=== PATIENT | female | born 1960 | race African-American/Black ===

== ENCOUNTER 2020-06-14 13:07 | Observation (INO) ==
[2020-06-14 14:18] LABS: Basophils % 0.5 % (0.0-0.8); Eosinophils # 0.1 10*3/uL (0.0-0.87); Eosinophils % 1.3 % (0.00-10.9); Hematocrit 25.9 VOL% (35.7-47.0); Hemoglobin 7.8 GM/DL (12.0-16.0); Immature Granulocytes % 0.3 %; Immature Granulocytes Absolute 0.01 #; Lymphocytes % 25.3 % (21.3-54.2); Mean Corpuscular HGB Conc 30.1 GM/DL (32-36); Mean Corpuscular Volume 100.4 FL (87-102); Mean Platelet Volume 10.3 FL (9.6-12.0); Monocytes % 12.5 % (1.7-12.7); Neutrophils % 60.1 % (38.7-73.9); Platelet Count 176 T/CUMM (130-400); Red Blood Count 2.58 MC/CUMM (3.8-5.5); Red Cell Distribution Width 16.9 % (9.3-17.3); White Blood Count 3.9 T/CUMM (4-12)
[2020-06-14 14:49] LABS: Alanine Aminotransferase < 9 U/L (13-56); Albumin 2.4 G/DL (3.4-5.0); Alkaline Phosphatase 48 U/L (45-117); Aspartate Amino Transferase 15 U/L (0-37); Blood Urea Nitrogen 10 MG/DL (7-18); Calcium 8.8 MG/DL (8.5-10.1); Estimated Glom Filtration Rate 12 ML/MIN; Glucose 87 MG/DL (74-106); Osmolality,Calculated 267.1 MOS/KG (273-304); Total Protein 5.8 G/DL (6.4-8.3)
[2020-06-14] MEDS ORDERED: GLUCAGON 1 MG VIAL IM PRN (15:30)
[2020-06-14] MEDS ORDERED: DEXTROSE 50% 25 GM/50 ML VIAL IV PRN (15:30)
[2020-06-14] MEDS ORDERED: NICOTINE 21 MG/24 HR PATCH TRANSDERM PRN (15:30)
[2020-06-14] MEDS ORDERED: ACETAMINOPHEN 325 MG TABLET PO PRN (15:30)
[2020-06-14] MEDS ORDERED: hydrALAZINE 20 MG/1 ML VIAL IV PRN (15:30)
[2020-06-14] MEDS ORDERED: LACTULOSE 20 GM/30 ML UDCUP PO PRN (15:30)
[2020-06-14] MEDS ORDERED: ZALEPLON 5 MG CAPSULE PO PRN (15:30)
[2020-06-14] MEDS ORDERED: MORPHINE 4 MG/1 ML VIAL IV PRN (15:30)
[2020-06-14] MEDS ORDERED: ONDANSETRON 4 MG/2 ML VIAL IV PRN (15:30)
[2020-06-14] MEDS ORDERED: traZODone 50 MG TABLET PO PRN (16:02)
[2020-06-14] MEDS: INSULIN REGULAR 100 UNIT/ML SUBCUT SCH ×2 (16:59→21:16)
[2020-06-14] MEDS ORDERED: ATORVASTATIN 40 MG TABLET PO SCH (21:00)
[2020-06-14] MEDS: cloNIDine 0.1 MG TABLET PO SCH (21:16)
[2020-06-14] MEDS: APIXABAN 5 MG TABLET PO SCH (21:20)
[2020-06-14] MEDS: carvediloL 12.5 MG TABLET PO SCH (21:20)
[2020-06-14] MEDS: ALBUTEROL/IPRATROPIUM 3 ML NEB RESP TX SCH (22:45)
[2020-06-15 04:07] LABS: Basophils % 0.5 % (0.0-0.8); Eosinophils # 0.1 10*3/uL (0.0-0.87); Eosinophils % 1.8 % (0.00-10.9); Hematocrit 25.1 VOL% (35.7-47.0); Hemoglobin 7.8 GM/DL (12.0-16.0); Immature Granulocytes % 0.3 %; Immature Granulocytes Absolute 0.01 #; Lymphocytes # 1.2 10*3/uL (1.4-4.0); Lymphocytes % 31.4 % (21.3-54.2); Mean Corpuscular HGB Conc 31.1 GM/DL (32-36); Mean Corpuscular Volume 98.8 FL (87-102); Mean Platelet Volume 10.9 FL (9.6-12.0); Monocytes % 14.9 % (1.7-12.7); Neutrophils % 51.1 % (38.7-73.9); Platelet Count 149 T/CUMM (130-400); Red Blood Count 2.54 MC/CUMM (3.8-5.5); Red Cell Distribution Width 16.9 % (9.3-17.3)
[2020-06-15] MEDS: ALBUTEROL/IPRATROPIUM 3 ML NEB RESP TX SCH ×2 (04:30→07:52)
[2020-06-15 04:45] LABS: Albumin 2.3 G/DL (3.4-5.0); Bilirubin,Total 0.4 MG/DL (0.2-1.0); Calcium 9.5 MG/DL (8.5-10.1); Osmolality,Calculated 262.5 MOS/KG (273-304); Risk Ratio 2.39; Thyroid Stimulating Hormone 2.54 uIU/ml (0.358-3.74); VLDL CHOLESTEROL 12.2 MG/DL
[2020-06-15] MEDS ORDERED: POTASSIUM CHLORIDE 20 MEQ TABLET PO ONE (07:36)
[2020-06-15 08:03] VITALS: BP 158/68
[2020-06-15] MEDS ORDERED: lisinopriL 10 MG TABLET PO SCH (09:00)
[2020-06-15] MEDS ORDERED: PANTOPRAZOLE 40 MG TABLET PO SCH (09:00)
[2020-06-15] MEDS ORDERED: ASPIRIN CHEW 81 MG TABLET PO SCH (09:00)
[2020-06-15] MEDS: INSULIN REGULAR 100 UNIT/ML SUBCUT SCH (10:34)
[2020-06-15] MEDS: APIXABAN 5 MG TABLET PO SCH (12:18)
[2020-06-15] MEDS: cloNIDine 0.1 MG TABLET PO SCH (12:18)
[2020-06-15] MEDS: carvediloL 12.5 MG TABLET PO SCH (12:18)
== END 2020-06-15 13:00 | disposition home or self-care (01) ==
LOC: N.ED 13:07 → N.EDINP 15:30 → INTOOBSV 15:30 → N.EDINP 15:48 → N.TELEN 16:27
PROVIDERS: ADMIT Internal Medicine; ATTEND Internal Medicine

== ENCOUNTER 2020-06-22 10:15 | Inpatient (IN) ==
[2020-06-22] MEDS ORDERED: MORPHINE 4 MG/1 ML VIAL ONE (11:42)
[2020-06-22] MEDS ORDERED: ASPIRIN CHEW 81 MG TABLET PO STA (11:42)
[2020-06-22] MEDS ORDERED: MORPHINE 4 MG/1 ML VIAL IV STA (11:42)
[2020-06-22] MEDS ORDERED: NITROGLYCERIN SL 0.4 MG TABLET SL STA (11:42)
[2020-06-22] MEDS ORDERED: ASPIRIN 325 MG TABLET ONE (11:43)
[2020-06-22] MEDS ORDERED: ASPIRIN CHEW 81 MG TABLET PO ONE (11:43)
[2020-06-22 11:44] LABS: Basophils % 0.3 % (0.0-0.8); Eosinophils % 0.3 % (0.00-10.9); Hgb & Hct Comparison OK; Immature Granulocytes % 0.5 %; Immature Granulocytes Absolute 0.03 #; Lymphocytes # 1.6 10*3/uL (1.4-4.0); Lymphocytes % 26.7 % (21.3-54.2); Mean Corpuscular HGB Conc 30.2 GM/DL (32-36); Mean Corpuscular Hemoglobin 31 PG (27-34); Mean Corpuscular Volume 101.8 FL (87-102); Monocytes # 0.5 10*3/uL (0.11-0.8); Monocytes % 8.4 % (1.7-12.7); Neutrophils # 3.9 10*3/uL (1.4-7.4); Neutrophils % 63.8 % (38.7-73.9); Platelet Count 151 T/CUMM (130-400)
[2020-06-22 11:50] LABS: Hematocrit 17.2 VOL% (35.7-47.0); Hemoglobin 5.2 GM/DL (12.0-16.0)
[2020-06-22 11:55] LABS: D-Dimer <= 0.5 MG/L FEU (<=0.5); INR 1.1; PT Patient Result 11.6 SECS (9.8-11.9); Partial Thromboplastin Time 26.6 SECS (23.9-33.8)
[2020-06-22 12:13] LABS: Alanine Aminotransferase < 6 U/L (13-56); Albumin/Globulin Ratio 0.6 RATIO (1.1-2.2); Alkaline Phosphatase 41 U/L (45-117); Aspartate Amino Transferase 12 U/L (0-37); Blood Urea Nitrogen 47 MG/DL (7-18); Carbon Dioxide 30 MMOL/L (21-32); Chloride 92 MMOL/L (98-107); Estimated Glom Filtration Rate 10 ML/MIN; Globulin 3.7 G/DL (2.3-3.5); Osmolality,Calculated 268.1 MOS/KG (273-304); Sodium 128 MMOL/L (136-145)
[2020-06-22 12:22] LABS: Barbiturates Screen,Urine Negative (Negative); Cannabinoid Screen,Urine Negative (Negative); Phencyclidine Screen,Urine Negative (Negative)
[2020-06-22 12:23] LABS: Was Specimen Discarded? Yes
[2020-06-22 12:29] LABS: Apearance,Urine Clear (Clear); Bilirubin,Urine Negative (Negative); Blood, Urine Negative (Negative); Glucose,Urine (UA) Negative (Negative); Ketones,Urine Negative (Negative); Nitrite,Urine Negative (Negative); Protein,Urine 1+ MG/DL; RBC,Urine Rare /HPF (0-4); Squamous Epithelial Cell,Urine Moderate /HPF (0-10); Urine Color Straw (Yellow); Urine Specific Gravity 1.005 (1.001-1.035); Urine Urobilinogen < 2.0 EU/DL (0.2-1.0); WBC,Urine TNTC /HPF (0-6)
[2020-06-22 12:30] LABS: Bacteria,Urine Few /HPF (Few)
[2020-06-22] MEDS ORDERED: SODIUM CHLORIDE 0.9% 1,000 ML IV PRN (14:01)
[2020-06-22] MEDS ORDERED: NICOTINE 21 MG/24 HR PATCH TRANSDERM PRN (14:37)
[2020-06-22] MEDS ORDERED: GLUCAGON 1 MG VIAL IM PRN (14:37)
[2020-06-22] MEDS ORDERED: ONDANSETRON 4 MG/2 ML VIAL IV PRN (14:37)
[2020-06-22] MEDS ORDERED: guaiFENesin/DM ER 600-30 MG TABLET PO PRN (14:37)
[2020-06-22] MEDS ORDERED: ALUMINUM/MAGNES/SIMETH MAX STR 30 ML UDCUP PO PRN (14:37)
[2020-06-22] MEDS ORDERED: DEXTROSE 50% 25 GM/50 ML VIAL IV PRN (14:37)
[2020-06-22] MEDS ORDERED: ACETAMINOPHEN 325 MG TABLET PO PRN (14:37)
[2020-06-22] MEDS ORDERED: hydrALAZINE 20 MG/1 ML VIAL IV PRN (14:37)
[2020-06-22] MEDS ORDERED: PROMETHAZINE 25 MG/1 ML VIAL IM PRN (14:37)
[2020-06-22] MEDS ORDERED: diphenhydrAMINE CAP 25 MG CAPSULE PO PRN (14:37)
[2020-06-22 15:12] LABS: Folate 3.6 NG/ML (5.4-24.0)
[2020-06-22] MEDS: INSULIN LISPRO 100 UNIT/ML SUBCUT SCH ×2 (16:52→22:11)
[2020-06-22] MEDS: SODIUM CHLORIDE 0.9% 1,000 ML IV SCH ×2 (16:52→22:11)
[2020-06-22] MEDS: carvediloL 12.5 MG TABLET PO SCH (16:52)
[2020-06-22] MEDS: ALBUTEROL 2.5 MG/3 ML NEB RESP TX SCH (19:14)
[2020-06-22] MEDS: PANTOPRAZOLE INJ 200 MG in SODIUM CHLORIDE 0.9% 250 ML IV SCH (20:21)
[2020-06-22] MEDS: DOCUSATE SODIUM 100 MG CAPSULE PO SCH (22:11)
[2020-06-22] MEDS: traZODone 50 MG TABLET PO PRN (22:11)
[2020-06-22] MEDS: ATORVASTATIN 40 MG TABLET PO SCH (22:11)
[2020-06-23] MEDS: ALBUTEROL 2.5 MG/3 ML NEB RESP TX SCH ×4 (00:18→19:41)
[2020-06-23 07:13] LABS: Anion Gap 10.8 MMOL/L (5.0-15.0); Magnesium 1.8 MG/DL (1.8-2.4); Osmolality,Calculated 268.8 MOS/KG (273-304); Potassium 3.8 MMOL/L (3.5-5.1)
[2020-06-23 07:52] LABS: Basophils % 0.5 % (0.0-0.8); Eosinophils % 0.5 % (0.00-10.9); Hematocrit 19.2 VOL% (35.7-47.0); Hgb & Hct Comparison OK; Immature Granulocytes % 0.6 %; Immature Granulocytes Absolute 0.05 #; Immature Platelet Fraction 4.2 % (0.0-7.0); Lymphocytes # 2.1 10*3/uL (1.4-4.0); Lymphocytes % 24.2 % (21.3-54.2); Mean Corpuscular HGB Conc 32.8 GM/DL (32-36); Mean Corpuscular Hemoglobin 30 PG (27-34); Mean Corpuscular Volume 91.9 FL (87-102); Monocytes % 11.3 % (1.7-12.7); Neutrophils # 5.4 10*3/uL (1.4-7.4); Neutrophils % 62.9 % (38.7-73.9)
[2020-06-23 07:57] LABS: Hemoglobin 6.3 GM/DL (12.0-16.0); Platelet Count 114 T/CUMM (130-400)
[2020-06-23] MEDS ORDERED: SODIUM CHLORIDE 0.9% 1,000 ML IV PRN (08:10)
[2020-06-23 08:14] LABS: Basophils % 0.3 % (0.0-0.8); Eosinophils % 0.3 % (0.00-10.9); Hgb & Hct Comparison OK; Immature Granulocytes % 0.5 %; Immature Granulocytes Absolute 0.03 #; Lymphocytes # 1.6 10*3/uL (1.4-4.0); Lymphocytes % 26.7 % (21.3-54.2); Mean Corpuscular HGB Conc 30.2 GM/DL (32-36); Mean Corpuscular Hemoglobin 31 PG (27-34); Mean Corpuscular Volume 101.8 FL (87-102); Monocytes # 0.5 10*3/uL (0.11-0.8); Monocytes % 8.4 % (1.7-12.7); Neutrophils # 3.9 10*3/uL (1.4-7.4); Neutrophils % 63.8 % (38.7-73.9); Platelet Count 151 T/CUMM (130-400)
[2020-06-23 08:15] LABS: Hematocrit 17.2 VOL% (35.7-47.0); Hemoglobin 5.2 GM/DL (12.0-16.0)
[2020-06-23 08:24] LABS: Immature Retic Fraction 25.1 % (3.0-15.9); Reticulocyte % 9.2 % (0.5-1.5)
[2020-06-23 08:43] LABS: Hemoglobin A1 (Alkaline) 97.4 % (96.5-98.5); Hemoglobin A2 (Alkaline) 2.6 % (1.5-3.5)
[2020-06-23 09:27] LABS: Sedimentation Rate-Westergren 23 MM/HR (0-30)
[2020-06-23] MEDS: lisinopriL 10 MG TABLET PO SCH (09:47)
[2020-06-23] MEDS: INSULIN LISPRO 100 UNIT/ML SUBCUT SCH ×4 (09:47→22:05)
[2020-06-23] MEDS: carvediloL 12.5 MG TABLET PO SCH ×2 (09:47→18:05)
[2020-06-23] MEDS: DOCUSATE SODIUM 100 MG CAPSULE PO SCH ×2 (09:48→22:05)
[2020-06-23] MEDS: SODIUM CHLORIDE 0.9% 1,000 ML IV SCH (10:31)
[2020-06-23 15:40] LABS: Hematocrit 21.9 VOL% (35.7-47.0); Hgb & Hct Comparison OK
[2020-06-23 15:43] LABS: Hemoglobin 7.1 GM/DL (12.0-16.0)
[2020-06-23 19:37] LABS: Hematocrit 20.4 VOL% (35.7-47.0); Hemoglobin 6.7 GM/DL (12.0-16.0); Hgb & Hct Comparison OK
[2020-06-23] MEDS: ATORVASTATIN 40 MG TABLET PO SCH (22:04)
[2020-06-23] MEDS: traZODone 50 MG TABLET PO PRN (22:04)
[2020-06-24] MEDS: ALBUTEROL 2.5 MG/3 ML NEB RESP TX SCH ×4 (00:18→19:04)
[2020-06-24] MEDS: PANTOPRAZOLE INJ 200 MG in SODIUM CHLORIDE 0.9% 250 ML IV SCH ×2 (01:06→14:59)
[2020-06-24 07:27] LABS: Basophils % 0.3 % (0.0-0.8); Eosinophils # 0.1 10*3/uL (0.0-0.87); Eosinophils % 0.8 % (0.00-10.9); Hematocrit 23.3 VOL% (35.7-47.0); Hemoglobin 7.9 GM/DL (12.0-16.0); Hgb & Hct Comparison OK; Immature Granulocytes % 0.4 %; Immature Granulocytes Absolute 0.03 #; Immature Platelet Fraction 3.6 % (0.0-7.0); Lymphocytes # 1.7 10*3/uL (1.4-4.0); Lymphocytes % 22.9 % (21.3-54.2); Mean Corpuscular HGB Conc 33.9 GM/DL (32-36); Mean Corpuscular Hemoglobin 30 PG (27-34); Mean Corpuscular Volume 89.3 FL (87-102); Monocytes # 0.9 10*3/uL (0.11-0.8); Monocytes % 12.3 % (1.7-12.7); Neutrophils # 4.7 10*3/uL (1.4-7.4); Neutrophils % 63.3 % (38.7-73.9); Platelet Count 106 T/CUMM (130-400)
[2020-06-24] MEDS: INSULIN LISPRO 100 UNIT/ML SUBCUT SCH ×4 (08:16→20:55)
[2020-06-24] MEDS: carvediloL 12.5 MG TABLET PO SCH ×2 (12:36→16:38)
[2020-06-24] MEDS: DOCUSATE SODIUM 100 MG CAPSULE PO SCH ×2 (12:37→20:55)
[2020-06-24] MEDS: MENTHOL/ZINC OXIDE OINT 71 GM JAR TOP SCH ×3 (12:37→20:55)
[2020-06-24] MEDS: lisinopriL 10 MG TABLET PO SCH (12:37)
[2020-06-24] MEDS: FOLIC ACID 1 MG TABLET PO SCH (12:37)
[2020-06-24 13:39] LABS: Hematocrit 23.6 VOL% (35.7-47.0); Hemoglobin 7.9 GM/DL (12.0-16.0); Hgb & Hct Comparison OK
[2020-06-24] MEDS: traZODone 50 MG TABLET PO PRN (20:54)
[2020-06-24] MEDS: ATORVASTATIN 40 MG TABLET PO SCH (20:54)
[2020-06-25] MEDS: ALBUTEROL 2.5 MG/3 ML NEB RESP TX SCH ×4 (00:26→19:17)
[2020-06-25] MEDS: INSULIN LISPRO 100 UNIT/ML SUBCUT SCH ×4 (07:59→21:22)
[2020-06-25] MEDS: DOCUSATE SODIUM 100 MG CAPSULE PO SCH ×2 (09:42→21:22)
[2020-06-25] MEDS: carvediloL 12.5 MG TABLET PO SCH ×2 (09:42→17:54)
[2020-06-25] MEDS: FOLIC ACID 1 MG TABLET PO SCH (09:42)
[2020-06-25] MEDS: lisinopriL 10 MG TABLET PO SCH (09:45)
[2020-06-25] MEDS: MENTHOL/ZINC OXIDE OINT 71 GM JAR TOP SCH ×4 (11:15→21:21)
[2020-06-25] MEDS ORDERED: cloNIDine 0.1 MG TABLET PO SCH (12:30)
[2020-06-25 12:53] LABS: % Iron Saturation 18.4 % (18-50)
[2020-06-25] MEDS: PANTOPRAZOLE INJ 200 MG in SODIUM CHLORIDE 0.9% 250 ML IV SCH (16:32)
[2020-06-25] MEDS ORDERED: APIXABAN 5 MG TABLET PO SCH (21:00)
[2020-06-25] MEDS: ATORVASTATIN 40 MG TABLET PO SCH (21:21)
[2020-06-25] MEDS: cloNIDine 0.1 MG TABLET PO SCH (21:21)
[2020-06-25] MEDS: traZODone 50 MG TABLET PO PRN (21:21)
[2020-06-26] MEDS: ALBUTEROL 2.5 MG/3 ML NEB RESP TX SCH ×4 (01:50→20:10)
[2020-06-26 05:17] LABS: Basophils % 0.3 % (0.0-0.8); Eosinophils # 0.1 10*3/uL (0.0-0.87); Eosinophils % 1.1 % (0.00-10.9); Hematocrit 21.4 VOL% (35.7-47.0); Hgb & Hct Comparison OK; Immature Granulocytes % 0.5 %; Immature Granulocytes Absolute 0.04 #; Immature Platelet Fraction 3.1 % (0.0-7.0); Lymphocytes # 1.5 10*3/uL (1.4-4.0); Lymphocytes % 16.8 % (21.3-54.2); Mean Corpuscular HGB Conc 32.7 GM/DL (32-36); Mean Corpuscular Hemoglobin 30 PG (27-34); Monocytes # 0.9 10*3/uL (0.11-0.8); Monocytes % 9.6 % (1.7-12.7); Neutrophils # 6.4 10*3/uL (1.4-7.4); Neutrophils % 71.7 % (38.7-73.9); Platelet Count 108 T/CUMM (130-400)
[2020-06-26 05:37] LABS: Anion Gap 10.1 MMOL/L (5.0-15.0); Osmolality,Calculated 275.4 MOS/KG (273-304); Potassium 4.1 MMOL/L (3.5-5.1)
[2020-06-26 06:50] LABS: Platelet Estimate Adequate
[2020-06-26 06:51] LABS: Basophilic Stippling Slight
[2020-06-26] MEDS: INSULIN LISPRO 100 UNIT/ML SUBCUT SCH ×4 (07:28→20:55)
[2020-06-26] MEDS ORDERED: ASPIRIN CHEW 81 MG TABLET PO SCH (09:00)
[2020-06-26] MEDS: FOLIC ACID 1 MG TABLET PO SCH (09:13)
[2020-06-26] MEDS: DOCUSATE SODIUM 100 MG CAPSULE PO SCH ×2 (09:13→20:55)
[2020-06-26] MEDS: carvediloL 12.5 MG TABLET PO SCH ×2 (09:13→16:49)
[2020-06-26] MEDS: cloNIDine 0.1 MG TABLET PO SCH (09:13)
[2020-06-26] MEDS: lisinopriL 10 MG TABLET PO SCH (09:13)
[2020-06-26] MEDS: MENTHOL/ZINC OXIDE OINT 71 GM JAR TOP SCH ×4 (09:13→20:55)
[2020-06-26] MEDS ORDERED: SODIUM CHLORIDE 0.9% 1,000 ML IV PRN (13:21)
[2020-06-26] MEDS: FERROUS SULFATE 325 MG TABLET PO SCH (14:06)
[2020-06-26] MEDS: PANTOPRAZOLE INJ 200 MG in SODIUM CHLORIDE 0.9% 250 ML IV SCH (16:49)
[2020-06-26] MEDS: ATORVASTATIN 40 MG TABLET PO SCH (20:55)
[2020-06-26] MEDS: traZODone 50 MG TABLET PO PRN (20:56)
[2020-06-27] MEDS: ALBUTEROL 2.5 MG/3 ML NEB RESP TX SCH ×4 (00:40→20:10)
[2020-06-27 06:31] LABS: Basophils % 0.2 % (0.0-0.8); Eosinophils # 0.1 10*3/uL (0.0-0.87); Hematocrit 20.8 VOL% (35.7-47.0); Hemoglobin 6.8 GM/DL (12.0-16.0); Hgb & Hct Comparison OK; Immature Granulocytes % 0.2 %; Immature Granulocytes Absolute 0.02 #; Immature Platelet Fraction 2.5 % (0.0-7.0); Lymphocytes # 1.1 10*3/uL (1.4-4.0); Lymphocytes % 13.6 % (21.3-54.2); Mean Corpuscular HGB Conc 32.7 GM/DL (32-36); Mean Corpuscular Hemoglobin 31 PG (27-34); Mean Corpuscular Volume 93.7 FL (87-102); Monocytes # 0.7 10*3/uL (0.11-0.8); Monocytes % 8.4 % (1.7-12.7); Neutrophils # 6.2 10*3/uL (1.4-7.4); Neutrophils % 76.6 % (38.7-73.9); Platelet Count 121 T/CUMM (130-400)
[2020-06-27 06:57] LABS: Hypochromasia 2+; Platelet Estimate Normal
[2020-06-27] MEDS ORDERED: SODIUM CHLORIDE 0.9% 500 ML IV SCH (07:00)
[2020-06-27 07:05] LABS: Osmolality,Calculated 273.8 MOS/KG (273-304)
[2020-06-27] MEDS: INSULIN LISPRO 100 UNIT/ML SUBCUT SCH ×4 (08:49→20:28)
[2020-06-27] MEDS ORDERED: propofoL 200 MG/20 ML VIAL IV ONE (09:00)
[2020-06-27] MEDS ORDERED: LIDOCAINE 2% 5 ML VIAL ONE (09:00)
[2020-06-27] MEDS: carvediloL 12.5 MG TABLET PO SCH ×2 (10:22→17:05)
[2020-06-27] MEDS: FOLIC ACID 1 MG TABLET PO SCH (10:23)
[2020-06-27] MEDS: DOCUSATE SODIUM 100 MG CAPSULE PO SCH ×2 (10:23→20:28)
[2020-06-27] MEDS: lisinopriL 10 MG TABLET PO SCH (10:23)
[2020-06-27] MEDS: MENTHOL/ZINC OXIDE OINT 71 GM JAR TOP SCH ×4 (10:23→20:28)
[2020-06-27] MEDS: FERROUS SULFATE 325 MG TABLET PO SCH (10:23)
[2020-06-27] MEDS: ATORVASTATIN 40 MG TABLET PO SCH (20:28)
[2020-06-27] MEDS: traZODone 50 MG TABLET PO PRN (20:28)
[2020-06-27] MEDS: PANTOPRAZOLE 40 MG VIAL IV SCH (20:28)
[2020-06-28] MEDS: ALBUTEROL 2.5 MG/3 ML NEB RESP TX SCH ×2 (00:23→07:20)
[2020-06-28 04:28] LABS: Basophils # 0.1 10*3/uL (0.0-0.2); Basophils % 0.5 % (0.0-0.8); Eosinophils # 0.1 10*3/uL (0.0-0.87); Eosinophils % 0.9 % (0.00-10.9); Hematocrit 23.3 VOL% (35.7-47.0); Hemoglobin 7.5 GM/DL (12.0-16.0); Hgb & Hct Comparison OK; Immature Granulocytes % 0.4 %; Immature Granulocytes Absolute 0.04 #; Lymphocytes # 1.5 10*3/uL (1.4-4.0); Lymphocytes % 16.4 % (21.3-54.2); Mean Corpuscular HGB Conc 32.2 GM/DL (32-36); Mean Corpuscular Hemoglobin 31 PG (27-34); Mean Corpuscular Volume 94.7 FL (87-102); Monocytes # 0.8 10*3/uL (0.11-0.8); Monocytes % 8.9 % (1.7-12.7); Neutrophils # 6.6 10*3/uL (1.4-7.4); Neutrophils % 72.9 % (38.7-73.9); Platelet Count 111 T/CUMM (130-400)
[2020-06-28 05:05] LABS: Anion Gap 7.8 MMOL/L (5.0-15.0); Magnesium 1.6 MG/DL (1.8-2.4); Osmolality,Calculated 270.7 MOS/KG (273-304); Potassium 3.8 MMOL/L (3.5-5.1)
[2020-06-28 05:10] LABS: Hypochromasia 2+; Platelet Estimate Decreased
[2020-06-28] MEDS ORDERED: MAGNESIUM SULF RIDER 2 GM in PREMIX 1 EACH IV ONE (06:50)
[2020-06-28 07:55] VITALS: BP 140/63
[2020-06-28] MEDS: INSULIN LISPRO 100 UNIT/ML SUBCUT SCH (07:56)
[2020-06-28] MEDS: carvediloL 12.5 MG TABLET PO SCH (09:10)
[2020-06-28] MEDS: FERROUS SULFATE 325 MG TABLET PO SCH (09:10)
[2020-06-28] MEDS: FOLIC ACID 1 MG TABLET PO SCH (09:10)
[2020-06-28] MEDS: DOCUSATE SODIUM 100 MG CAPSULE PO SCH (09:10)
[2020-06-28] MEDS: PANTOPRAZOLE 40 MG VIAL IV SCH (09:11)
[2020-06-28] MEDS: lisinopriL 10 MG TABLET PO SCH (09:11)
[2020-06-28] MEDS: MENTHOL/ZINC OXIDE OINT 71 GM JAR TOP SCH (09:15)
== END 2020-06-28 10:06 | disposition home health service (06) ==
LOC: EDUNIT# → EDBD → N.ED 10:15 → SUATTDRO 14:26 → N.EDINP 14:26 → N.TELES 15:04
PROVIDERS: ADMIT Internal Medicine; ATTEND Internal Medicine

== ENCOUNTER 2020-07-12 05:19 | Inpatient (IN) ==
[2020-07-12] MEDS ORDERED: VECURONIUM 10 MG VIAL IV ONE (05:44)
[2020-07-12] MEDS ORDERED: ETOMIDATE 20 MG/10 ML VIAL IV ONE (05:44)
[2020-07-12] MEDS ORDERED: NITROGLYCERIN 2% OINT 1 INCH/GM PACK TOP STA (05:45)
[2020-07-12] MEDS ORDERED: methylPREDNISolone SOD SUC 125 MG/2 ML VIAL IV STA (05:45)
[2020-07-12] MEDS ORDERED: ONDANSETRON 4 MG/2 ML VIAL IV STA (05:45)
[2020-07-12] MEDS ORDERED: FUROSEMIDE 100 MG/10 ML VIAL IV STA (05:45)
[2020-07-12 06:01] LABS: Basophils % 0.4 % (0.0-0.8); Eosinophils # 0.1 10*3/uL (0.0-0.87); Eosinophils % 0.7 % (0.00-10.9); Immature Granulocytes % 0.5 %; Immature Granulocytes Absolute 0.05 #; Lymphocytes # 1.5 10*3/uL (1.4-4.0); Lymphocytes % 15.7 % (21.3-54.2); Mean Corpuscular HGB Conc 30.5 GM/DL (32-36); Mean Corpuscular Volume 99.5 FL (87-102); Mean Platelet Volume 10.5 FL (9.6-12.0); Monocytes % 3.9 % (1.7-12.7); Neutrophils % 78.8 % (38.7-73.9); Platelet Count 196 T/CUMM (130-400); Red Blood Count 2.11 MC/CUMM (3.8-5.5); Red Cell Distribution Width 15.3 % (9.3-17.3); White Blood Count 9.7 T/CUMM (4-12)
[2020-07-12 06:06] LABS: Hemoglobin 6.4 GM/DL (12.0-16.0)
[2020-07-12] MEDS ORDERED: ETOMIDATE 20 MG/10 ML VIAL IV STA (06:08)
[2020-07-12] MEDS ORDERED: VECURONIUM 10 MG VIAL IV STA (06:09)
[2020-07-12 06:21] LABS: ABG Base Excess 2.2 MMOL/L (-2.5-2.5); ABG HCO3 26.1 MMOL/L (20-26); ABG Oxygen Saturation 73.7 % (95-100); ABG PH 7.328 (7.35-7.45); ABG PO2 46.1 MM HG (80-95); ABG TCO2 27.3 MMOL/L (23-27)
[2020-07-12 06:21] LABS: PT Patient Result 10.6 SECS (9.8-11.9)
[2020-07-12 06:22] LABS: Apearance,Urine CLEAR (Clear); Bacteria,Urine Few /HPF (Few); Bilirubin,Urine Negative (Negative); Blood, Urine Negative (Negative); Glucose,Urine (UA) Negative (Negative); Ketones,Urine Negative (Negative); Nitrite,Urine Negative (Negative); Protein,Urine 100 MG/DL; RBC,Urine 3 /HPF (0-4); Squamous Epithelial Cell,Urine Occasional /HPF (0-10); Urine Color Straw (Yellow); Urine Specific Gravity 1.004 (1.001-1.035); Urine Urobilinogen < 2.0 EU/DL (0.2-1.0); WBC,Urine 146 /HPF (0-6)
[2020-07-12 06:23] LABS: Alanine Aminotransferase 14 U/L (13-56); Albumin 2.4 G/DL (3.4-5.0); Alkaline Phosphatase 61 U/L (45-117); Aspartate Amino Transferase 24 U/L (0-37); Bilirubin,Total < 0.39 MG/DL (0.2-1.0); Blood Urea Nitrogen 23 MG/DL (7-18); Calcium 9.4 MG/DL (8.5-10.1); Estimated Glom Filtration Rate 9 ML/MIN; Glucose 171 MG/DL (74-106); Osmolality,Calculated 280.8 MOS/KG (273-304); Total Protein 7.3 G/DL (6.4-8.3)
[2020-07-12 06:25] LABS: Barbiturates Screen,Urine Negative (Negative); Benzodiazepines Screen,Urine Negative (Negative); Cannabinoid Screen,Urine Negative (Negative); Opiate Screen,Urine Negative (Negative); Phencyclidine Screen,Urine Negative (Negative)
[2020-07-12] MEDS ORDERED: hydrALAZINE 20 MG/1 ML VIAL IV STA (06:34)
[2020-07-12 06:57] LABS: ABG Base Excess 4.7 MMOL/L (-2.5-2.5); ABG HCO3 28.7 MMOL/L (20-26); ABG Oxygen Saturation 99.6 % (95-100); ABG PCO2 47.2 MM HG (35-48)
[2020-07-12 06:58] LABS: % Iron Saturation 38.3 % (18-50)
[2020-07-12] MEDS ORDERED: VANCOMYCIN INJ 1,000 MG in SODIUM CHLORIDE 0.9% 250 ML IV STA (07:40)
[2020-07-12] MEDS ORDERED: MEROPENEM 500 MG in SODIUM CHLORIDE 0.9% 100 ML IV ONE (07:41)
[2020-07-12] MEDS ORDERED: ALBUTEROL 2.5 MG/3 ML NEB RESP TX PRN (07:43)
[2020-07-12] MEDS ORDERED: ONDANSETRON 4 MG/2 ML VIAL IV PRN (07:43)
[2020-07-12] MEDS ORDERED: SODIUM CHLORIDE 0.9% 100 ML IV ONE (08:17)
[2020-07-12] MEDS ORDERED: MEROPENEM 500 MG VIAL ONE (08:17)
[2020-07-12] MEDS ORDERED: SODIUM CHLORIDE 0.9% 1,000 ML IV PRN (08:53)
[2020-07-12] MEDS: PANTOPRAZOLE 40 MG VIAL IV SCH (09:04)
[2020-07-12] MEDS: ENOXAPARIN 30 MG/0.3 ML SYRINGE SUBCUT SCH (09:08)
[2020-07-12] MEDS: carvediloL 12.5 MG TABLET PER TUBE SCH ×2 (12:33→21:13)
[2020-07-12] MEDS: INSULIN LISPRO 100 UNIT/ML SUBCUT SCH (18:23)
[2020-07-13] MEDS: INSULIN LISPRO 100 UNIT/ML SUBCUT SCH ×5 (00:18→23:15)
[2020-07-13 03:35] LABS: ABG Base Excess 5.2 MMOL/L (-2.5-2.5); ABG HCO3 29.2 MMOL/L (20-26); ABG Oxygen Saturation 98.5 % (95-100); ABG PCO2 36.3 MM HG (35-48); ABG PH 7.504 (7.35-7.45); ABG TCO2 26.4 MMOL/L (23-27); Allen Test Positive; Pt O2 Delivery Device Ventilator
[2020-07-13 04:18] LABS: Basophils % 0.2 % (0.0-0.8); Eosinophils % 0.1 % (0.00-10.9); Hematocrit 25.9 VOL% (35.7-47.0); Hemoglobin 8.3 GM/DL (12.0-16.0); Immature Granulocytes % 0.5 %; Immature Granulocytes Absolute 0.06 #; Lymphocytes % 8.8 % (21.3-54.2); Mean Corpuscular Volume 95.6 FL (87-102); Mean Platelet Volume 10.7 FL (9.6-12.0); Monocytes % 8.6 % (1.7-12.7); NRBC # 0.02 10*3/uL; Neutrophils % 81.8 % (38.7-73.9); Platelet Count 173 T/CUMM (130-400); Red Blood Count 2.71 MC/CUMM (3.8-5.5); Red Cell Distribution Width 15.5 % (9.3-17.3); White Blood Count 11.8 T/CUMM (4-12)
[2020-07-13 04:57] LABS: Calcium 8.8 MG/DL (8.5-10.1); Osmolality,Calculated 275.7 MOS/KG (273-304)
[2020-07-13 04:58] LABS: Troponin I 3.28 NG/ML (0.00-0.045)
[2020-07-13] MEDS ORDERED: GLUCAGON 1 MG VIAL IM PRN (07:53)
[2020-07-13] MEDS ORDERED: DEXTROSE 10% 250 ML BAG IV PRN (07:53)
[2020-07-13] MEDS: carvediloL 12.5 MG TABLET PER TUBE SCH ×2 (10:00→22:52)
[2020-07-13] MEDS: MEROPENEM 500 MG in SODIUM CHLORIDE 0.9% 100 ML IV SCH (10:00)
[2020-07-13] MEDS: ENOXAPARIN 30 MG/0.3 ML SYRINGE SUBCUT SCH (10:00)
[2020-07-13] MEDS: PANTOPRAZOLE 40 MG VIAL IV SCH (10:00)
[2020-07-13] MEDS: lisinopriL 10 MG TABLET PO SCH (11:36)
[2020-07-13] MEDS ORDERED: DOPamine 800 MG/250 ML PREMIX IV PRN (19:19)
[2020-07-14 03:58] LABS: Basophils % 0.2 % (0.0-0.8); Eosinophils % 0.3 % (0.00-10.9); Hematocrit 25.3 VOL% (35.7-47.0); Hemoglobin 8.4 GM/DL (12.0-16.0); Immature Granulocytes % 0.5 %; Immature Granulocytes Absolute 0.05 #; Lymphocytes # 0.9 10*3/uL (1.4-4.0); Lymphocytes % 8.9 % (21.3-54.2); Mean Corpuscular HGB Conc 33.2 GM/DL (32-36); Mean Corpuscular Volume 94.4 FL (87-102); Mean Platelet Volume 10.6 FL (9.6-12.0); Neutrophils % 80.1 % (38.7-73.9); Platelet Count 181 T/CUMM (130-400); Red Blood Count 2.68 MC/CUMM (3.8-5.5); White Blood Count 10.3 T/CUMM (4-12)
[2020-07-14 04:17] LABS: Calcium 8.9 MG/DL (8.5-10.1); Osmolality,Calculated 277.8 MOS/KG (273-304)
[2020-07-14 04:58] LABS: ABG Base Excess 3.2 MMOL/L (-2.5-2.5); ABG HCO3 26.4 MMOL/L (20-26); ABG Oxygen Saturation 99.1 % (95-100); ABG PCO2 33.9 MM HG (35-48); ABG PH 7.509 (7.35-7.45); ABG PO2 189.3 MM HG (80-95); ABG TCO2 27.4 MMOL/L (23-27); Allen Test Positive; Pt O2 Delivery Device Ventilator
[2020-07-14 05:30] LABS: Barbiturates Screen,Urine Negative (Negative); Benzodiazepines Screen,Urine Negative (Negative); Cannabinoid Screen,Urine Negative (Negative); Opiate Screen,Urine Negative (Negative); Phencyclidine Screen,Urine Negative (Negative)
[2020-07-14] MEDS: INSULIN LISPRO 100 UNIT/ML SUBCUT SCH ×4 (05:39→20:51)
[2020-07-14] MEDS ORDERED: VANCOMYCIN INJ 750 MG in SODIUM CHLORIDE 0.9% 250 ML IV PRN (08:15)
[2020-07-14] MEDS: ENOXAPARIN 30 MG/0.3 ML SYRINGE SUBCUT SCH (08:47)
[2020-07-14] MEDS: carvediloL 12.5 MG TABLET PER TUBE SCH ×2 (08:47→20:51)
[2020-07-14] MEDS: lisinopriL 10 MG TABLET PO SCH (08:47)
[2020-07-14] MEDS: MEROPENEM 500 MG in SODIUM CHLORIDE 0.9% 100 ML IV SCH (08:47)
[2020-07-14] MEDS: PANTOPRAZOLE 40 MG VIAL IV SCH (08:47)
[2020-07-14] MEDS ORDERED: VANCOMYCIN INJ 1,250 MG in SODIUM CHLORIDE 0.9% 250 ML IV ONE (09:00)
[2020-07-14] MEDS ORDERED: ALBUMIN 5% 12.5 GM/250 ML VIAL IV ONE (10:59)
[2020-07-15 05:36] LABS: Basophils % 0.2 % (0.0-0.8); Eosinophils # 0.1 10*3/uL (0.0-0.87); Eosinophils % 1.1 % (0.00-10.9); Hematocrit 26.2 VOL% (35.7-47.0); Hemoglobin 8.3 GM/DL (12.0-16.0); Immature Granulocytes % 0.6 %; Immature Granulocytes Absolute 0.06 #; Lymphocytes # 0.9 10*3/uL (1.4-4.0); Mean Corpuscular HGB Conc 31.7 GM/DL (32-36); Mean Corpuscular Volume 97.8 FL (87-102); Mean Platelet Volume 10.5 FL (9.6-12.0); Monocytes % 10.7 % (1.7-12.7); Neutrophils % 78.4 % (38.7-73.9); Platelet Count 190 T/CUMM (130-400); Red Blood Count 2.68 MC/CUMM (3.8-5.5); Red Cell Distribution Width 16.4 % (9.3-17.3); White Blood Count 9.5 T/CUMM (4-12)
[2020-07-15 06:00] LABS: Calcium 9.2 MG/DL (8.5-10.1); Osmolality,Calculated 280.7 MOS/KG (273-304)
[2020-07-15] MEDS: lisinopriL 10 MG TABLET PO SCH (12:00)
[2020-07-15] MEDS: MEROPENEM 500 MG in SODIUM CHLORIDE 0.9% 100 ML IV SCH (12:00)
[2020-07-15] MEDS: PANTOPRAZOLE 40 MG VIAL IV SCH (12:00)
[2020-07-15] MEDS: ENOXAPARIN 30 MG/0.3 ML SYRINGE SUBCUT SCH (12:00)
[2020-07-15] MEDS: carvediloL 12.5 MG TABLET PER TUBE SCH ×2 (12:00→21:07)
[2020-07-15] MEDS: INSULIN LISPRO 100 UNIT/ML SUBCUT SCH ×2 (13:21→16:42)
[2020-07-15] MEDS ORDERED: VANCOMYCIN INJ 750 MG in SODIUM CHLORIDE 0.9% 250 ML IV ONE (17:00)
[2020-07-16] MEDS: INSULIN LISPRO 100 UNIT/ML SUBCUT SCH ×5 (01:13→20:13)
[2020-07-16 06:01] LABS: Basophils % 0.3 % (0.0-0.8); Eosinophils # 0.1 10*3/uL (0.0-0.87); Eosinophils % 1.8 % (0.00-10.9); Hematocrit 24.5 VOL% (35.7-47.0); Hemoglobin 7.6 GM/DL (12.0-16.0); Immature Granulocytes % 0.7 %; Immature Granulocytes Absolute 0.05 #; Lymphocytes # 1.1 10*3/uL (1.4-4.0); Lymphocytes % 15.9 % (21.3-54.2); Mean Corpuscular Volume 95.7 FL (87-102); Mean Platelet Volume 10.6 FL (9.6-12.0); Monocytes % 13.6 % (1.7-12.7); Neutrophils % 67.7 % (38.7-73.9); Platelet Count 176 T/CUMM (130-400); Red Blood Count 2.56 MC/CUMM (3.8-5.5); White Blood Count 6.8 T/CUMM (4-12)
[2020-07-16 06:16] LABS: Calcium 8.8 MG/DL (8.5-10.1); Osmolality,Calculated 274.1 MOS/KG (273-304)
[2020-07-16 09:51] LABS: Folate 4.2 NG/ML (5.4-24.0)
[2020-07-16] MEDS: ENOXAPARIN 30 MG/0.3 ML SYRINGE SUBCUT SCH (10:10)
[2020-07-16] MEDS: lisinopriL 10 MG TABLET PO SCH (10:11)
[2020-07-16] MEDS: PANTOPRAZOLE 40 MG VIAL IV SCH (10:11)
[2020-07-16] MEDS: carvediloL 12.5 MG TABLET PER TUBE SCH ×2 (10:11→20:13)
[2020-07-16] MEDS: FOLIC ACID 1 MG TABLET PO SCH (10:11)
[2020-07-16] MEDS: MEROPENEM 500 MG in SODIUM CHLORIDE 0.9% 100 ML IV SCH (10:39)
[2020-07-16] MEDS: MORPHINE 4 MG/1 ML VIAL IV PRN (20:13)
[2020-07-17 06:30] LABS: Calcium 9.1 MG/DL (8.5-10.1); Osmolality,Calculated 274.2 MOS/KG (273-304)
[2020-07-17 06:35] LABS: Basophils % 0.4 % (0.0-0.8); Eosinophils # 0.2 10*3/uL (0.0-0.87); Eosinophils % 3.2 % (0.00-10.9); Hematocrit 23.5 VOL% (35.7-47.0); Hemoglobin 7.5 GM/DL (12.0-16.0); Immature Granulocytes % 0.5 %; Immature Granulocytes Absolute 0.03 #; Lymphocytes # 1.2 10*3/uL (1.4-4.0); Lymphocytes % 21.1 % (21.3-54.2); Mean Corpuscular HGB Conc 31.9 GM/DL (32-36); Mean Corpuscular Volume 96.3 FL (87-102); Mean Platelet Volume 10.7 FL (9.6-12.0); Monocytes % 15.5 % (1.7-12.7); Neutrophils % 59.3 % (38.7-73.9); Platelet Count 182 T/CUMM (130-400); Red Blood Count 2.44 MC/CUMM (3.8-5.5); Red Cell Distribution Width 15.9 % (9.3-17.3); White Blood Count 5.5 T/CUMM (4-12)
[2020-07-17] MEDS: INSULIN LISPRO 100 UNIT/ML SUBCUT SCH ×4 (07:33→21:23)
[2020-07-17] MEDS ORDERED: SODIUM CHLORIDE 0.9% 1,000 ML IV PRN (08:09)
[2020-07-17] MEDS: ENOXAPARIN 30 MG/0.3 ML SYRINGE SUBCUT SCH (09:24)
[2020-07-17] MEDS: carvediloL 12.5 MG TABLET PER TUBE SCH ×2 (09:26→20:56)
[2020-07-17] MEDS: PANTOPRAZOLE 40 MG TABLET PO SCH (09:26)
[2020-07-17] MEDS: FOLIC ACID 1 MG TABLET PO SCH (09:26)
[2020-07-17] MEDS: lisinopriL 10 MG TABLET PO SCH (09:26)
[2020-07-17] MEDS: POLYETHYLENE GLYCOL POWDER 17 GM PACK PO SCH (11:00)
[2020-07-17] MEDS: DOCUSATE/SENNA 50-8.6 MG TABLET PO SCH ×2 (11:00→20:56)
[2020-07-17] MEDS: MORPHINE 4 MG/1 ML VIAL IV PRN (20:56)
[2020-07-18 06:06] LABS: Basophils % 0.4 % (0.0-0.8); Eosinophils # 0.2 10*3/uL (0.0-0.87); Eosinophils % 3.5 % (0.00-10.9); Hemoglobin 7.4 GM/DL (12.0-16.0); Immature Granulocytes % 0.8 %; Immature Granulocytes Absolute 0.04 #; Lymphocytes # 1.2 10*3/uL (1.4-4.0); Lymphocytes % 24.2 % (21.3-54.2); Mean Corpuscular HGB Conc 32.2 GM/DL (32-36); Mean Corpuscular Volume 96.6 FL (87-102); Mean Platelet Volume 10.4 FL (9.6-12.0); Monocytes % 15.7 % (1.7-12.7); Neutrophils % 55.4 % (38.7-73.9); Platelet Count 199 T/CUMM (130-400); Red Blood Count 2.38 MC/CUMM (3.8-5.5); Red Cell Distribution Width 15.7 % (9.3-17.3); White Blood Count 4.9 T/CUMM (4-12)
[2020-07-18 06:17] LABS: Calcium 8.8 MG/DL (8.5-10.1); Osmolality,Calculated 275.5 MOS/KG (273-304)
[2020-07-18 06:28] LABS: Eosinophils 4 % (0-10); Lymphocytes 29 % (20-55); Nucleated Red Blood Cells 1 (0-5); Segmented Neutrophils 53 % (50-85); Total Cells Counted 100
[2020-07-18 06:29] LABS: Hypochromasia 2+; Microcytosis Slight; Platelet Estimate Adequate
[2020-07-18] MEDS: INSULIN LISPRO 100 UNIT/ML SUBCUT SCH ×2 (07:45→12:41)
[2020-07-18 12:40] VITALS: BP 133/65
[2020-07-18] MEDS: lisinopriL 10 MG TABLET PO SCH (13:10)
[2020-07-18] MEDS: FOLIC ACID 1 MG TABLET PO SCH (13:10)
[2020-07-18] MEDS: PANTOPRAZOLE 40 MG TABLET PO SCH (13:10)
[2020-07-18] MEDS: carvediloL 12.5 MG TABLET PER TUBE SCH (13:10)
[2020-07-18] MEDS: ENOXAPARIN 30 MG/0.3 ML SYRINGE SUBCUT SCH (13:11)
[2020-07-18] MEDS: DOCUSATE/SENNA 50-8.6 MG TABLET PO SCH (13:11)
[2020-07-18] MEDS: POLYETHYLENE GLYCOL POWDER 17 GM PACK PO SCH (14:18)
== END 2020-07-18 16:39 | disposition home or self-care (01) | DRG 208 ==
LOC: EDBD → EDUNIT# → N.ED 05:19 → N.EDINP 07:41 → SUATTDRO 07:41 → N.ICU 11:32 → N.3E 07-15 16:28
PROVIDERS: ADMIT Internal Medicine; ATTEND Internal Medicine

== ENCOUNTER 2020-07-22 04:53 | Inpatient (IN) ==
[2020-07-22] MEDS ORDERED: hydrALAZINE 20 MG/1 ML VIAL ONE (05:07)
[2020-07-22] MEDS ORDERED: FUROSEMIDE 100 MG/10 ML VIAL ONE (05:07)
[2020-07-22] MEDS ORDERED: ONDANSETRON 4 MG/2 ML VIAL ONE (05:12)
[2020-07-22] MEDS ORDERED: MORPHINE 4 MG/1 ML VIAL ONE (05:12)
[2020-07-22] MEDS ORDERED: ONDANSETRON 4 MG/2 ML VIAL IV STA (05:16)
[2020-07-22] MEDS ORDERED: MORPHINE 4 MG/1 ML VIAL IV STA (05:16)
[2020-07-22] MEDS ORDERED: FUROSEMIDE 100 MG/10 ML VIAL IV STA (05:16)
[2020-07-22] MEDS ORDERED: ETOMIDATE 20 MG/10 ML VIAL IV STA (05:16)
[2020-07-22] MEDS ORDERED: methylPREDNISolone SOD SUC 125 MG/2 ML VIAL ONE (05:16)
[2020-07-22] MEDS ORDERED: methylPREDNISolone SOD SUC 125 MG/2 ML VIAL IV STA (05:16)
[2020-07-22] MEDS ORDERED: VECURONIUM 10 MG VIAL IV STA (05:16)
[2020-07-22] MEDS ORDERED: NITROGLYCERIN 2% OINT 1 INCH/GM PACK TOP STA (05:16)
[2020-07-22] MEDS ORDERED: hydrALAZINE 20 MG/1 ML VIAL IV STA (05:18)
[2020-07-22] MEDS ORDERED: VANCOMYCIN INJ 1,000 MG in SODIUM CHLORIDE 0.9% 250 ML IV STA (05:23)
[2020-07-22 05:27] LABS: Basophils # 0.1 10*3/uL (0.0-0.2); Basophils % 0.9 % (0.0-0.8); Eosinophils # 0.2 10*3/uL (0.0-0.87); Hemoglobin 9.7 GM/DL (12.0-16.0); Immature Granulocytes % 0.5 %; Immature Granulocytes Absolute 0.04 #; Lymphocytes # 2.3 10*3/uL (1.4-4.0); Lymphocytes % 28.5 % (21.3-54.2); Mean Corpuscular HGB Conc 31.3 GM/DL (32-36); Mean Corpuscular Volume 97.8 FL (87-102); Mean Platelet Volume 10.8 FL (9.6-12.0); Monocytes % 8.2 % (1.7-12.7); Neutrophils % 59.9 % (38.7-73.9); Platelet Count 290 T/CUMM (130-400); Red Blood Count 3.17 MC/CUMM (3.8-5.5); Red Cell Distribution Width 15.9 % (9.3-17.3); White Blood Count 8.2 T/CUMM (4-12)
[2020-07-22 05:36] LABS: PT Patient Result 10.9 SECS (9.8-11.9)
[2020-07-22 05:43] LABS: ABG Base Excess -2.1 MMOL/L (-2.5-2.5); ABG HCO3 22.6 MMOL/L (20-26); ABG Oxygen Saturation 93.9 % (95-100); ABG PCO2 56.9 MM HG (35-48); ABG PH 7.261 (7.35-7.45); ABG PO2 84.8 MM HG (80-95)
[2020-07-22 06:32] LABS: Albumin 2.4 G/DL (3.4-5.0); Bilirubin,Total 0.4 MG/DL (0.2-1.0); Osmolality,Calculated 280.1 MOS/KG (273-304); Total Protein 6.8 G/DL (6.4-8.3)
[2020-07-22 06:47] LABS: Apearance,Urine CLEAR (Clear); Bacteria,Urine Occasional /HPF (Few); Bilirubin,Urine Negative (Negative); Blood, Urine Small mg/dL (Negative); Glucose,Urine (UA) 50 mg/dL (Negative); Hyaline Casts,Urine 1 /LPF (0-3); Ketones,Urine Negative (Negative); Nitrite,Urine Negative (Negative); Protein,Urine 30 MG/DL; RBC,Urine 3 /HPF (0-4); Squamous Epithelial Cell,Urine Occasional /HPF (0-10); Urine Color Straw (Yellow); Urine Specific Gravity 1.006 (1.001-1.035); Urine Urobilinogen < 2.0 EU/DL (0.2-1.0); WBC,Urine 2 /HPF (0-6)
[2020-07-22 07:08] LABS: Barbiturates Screen,Urine Negative (Negative); Benzodiazepines Screen,Urine Negative (Negative); Cannabinoid Screen,Urine Negative (Negative); Opiate Screen,Urine Negative (Negative); Phencyclidine Screen,Urine Negative (Negative)
[2020-07-22] MEDS ORDERED: ONDANSETRON 4 MG/2 ML VIAL IV PRN (07:09)
[2020-07-22] MEDS ORDERED: PROMETHAZINE 25 MG/1 ML VIAL IM PRN (07:09)
[2020-07-22] MEDS ORDERED: ALBUTEROL 2.5 MG/3 ML NEB RESP TX PRN (07:09)
[2020-07-22] MEDS ORDERED: ENOXAPARIN 30 MG/0.3 ML SYRINGE SUBCUT SCH (08:00)
[2020-07-22] MEDS ORDERED: HYDROmorphone 2 MG/1 ML VIAL IV STA (08:33)
[2020-07-22] MEDS ORDERED: HYDROmorphone 2 MG/1 ML VIAL ONE (08:35)
[2020-07-22] MEDS: LACTATED RINGERS 1,000 ML IV SCH ×2 (08:37→17:39)
[2020-07-22] MEDS ORDERED: PANTOPRAZOLE 40 MG TABLET PO SCH (09:00)
[2020-07-22] MEDS ORDERED: PIPERACILLIN/TAZOBACTAM 3,375 MG VIAL IV ONE (12:14)
[2020-07-22] MEDS ORDERED: SODIUM CHLORIDE 0.9% 100 ML IV ONE (12:14)
[2020-07-22] MEDS: PIPERACILLIN/TAZOBACTAM 3,375 MG in SODIUM CHLORIDE 0.9% 100 ML IV SCH ×2 (12:44→21:00)
[2020-07-22] MEDS ORDERED: VANCOMYCIN INJ 750 MG in SODIUM CHLORIDE 0.9% 250 ML IV PRN (13:08)
[2020-07-22] MEDS ORDERED: VANCOMYCIN INJ 500 MG in SODIUM CHLORIDE 0.9% 100 ML IV ONE (14:00)
[2020-07-23] MEDS: LACTATED RINGERS 1,000 ML IV SCH (01:00)
[2020-07-23] MEDS: PIPERACILLIN/TAZOBACTAM 3,375 MG in SODIUM CHLORIDE 0.9% 100 ML IV SCH ×3 (03:57→21:13)
[2020-07-23 05:05] LABS: Basophils % 0.6 % (0.0-0.8); Eosinophils # 0.1 10*3/uL (0.0-0.87); Eosinophils % 1.4 % (0.00-10.9); Hematocrit 26.9 VOL% (35.7-47.0); Hemoglobin 8.6 GM/DL (12.0-16.0); Immature Granulocytes % 0.3 %; Immature Granulocytes Absolute 0.02 #; Lymphocytes % 14.3 % (21.3-54.2); Mean Corpuscular Volume 95.1 FL (87-102); Mean Platelet Volume 9.9 FL (9.6-12.0); Monocytes % 10.9 % (1.7-12.7); Neutrophils % 72.5 % (38.7-73.9); Platelet Count 277 T/CUMM (130-400); Red Blood Count 2.83 MC/CUMM (3.8-5.5); Red Cell Distribution Width 15.9 % (9.3-17.3); White Blood Count 7.2 T/CUMM (4-12)
[2020-07-23 05:06] LABS: ABG Base Excess 1.5 MMOL/L (-2.5-2.5); ABG HCO3 25.8 MMOL/L (20-26); ABG Oxygen Saturation 98.4 % (95-100); ABG PCO2 39.7 MM HG (35-48); ABG PH 7.431 (7.35-7.45); ABG PO2 119.4 MM HG (80-95); Allen Test Positive; Pt O2 Delivery Device Ventilator
[2020-07-23 05:37] LABS: Alanine Aminotransferase 12 U/L (13-56); Albumin 2.1 G/DL (3.4-5.0); Alkaline Phosphatase 50 U/L (45-117); Aspartate Amino Transferase 18 U/L (0-37); Bilirubin,Total < 0.39 MG/DL (0.2-1.0); Blood Urea Nitrogen 25 MG/DL (7-18); Calcium 9.2 MG/DL (8.5-10.1); Estimated Glom Filtration Rate 13 ML/MIN; Glucose 69 MG/DL (74-106); Osmolality,Calculated 276.7 MOS/KG (273-304); Total Protein 6.5 G/DL (6.4-8.3)
[2020-07-23] MEDS: PANTOPRAZOLE 40 MG VIAL IV SCH (08:46)
[2020-07-23] MEDS ORDERED: MORPHINE 4 MG/1 ML VIAL IV PRN (09:34)
[2020-07-23] MEDS: LORazepam 2 MG/1 ML VIAL IV PRN (09:48)
[2020-07-23] MEDS: INSULIN LISPRO 100 UNIT/ML SUBCUT SCH ×2 (11:13→18:07)
[2020-07-23] MEDS: ALBUTEROL/IPRATROPIUM 3 ML NEB RESP TX SCH ×2 (12:00→20:07)
[2020-07-24] MEDS: INSULIN LISPRO 100 UNIT/ML SUBCUT SCH ×4 (00:12→18:22)
[2020-07-24] MEDS: ALBUTEROL/IPRATROPIUM 3 ML NEB RESP TX SCH ×4 (01:00→19:12)
[2020-07-24] MEDS: PIPERACILLIN/TAZOBACTAM 3,375 MG in SODIUM CHLORIDE 0.9% 100 ML IV SCH ×3 (04:22→20:29)
[2020-07-24 04:46] LABS: ABG Base Excess 1.1 MMOL/L (-2.5-2.5); ABG HCO3 25.4 MMOL/L (20-26); ABG Oxygen Saturation 98.9 % (95-100); ABG PCO2 41.4 MM HG (35-48); ABG PH 7.405 (7.35-7.45); ABG TCO2 24.1 MMOL/L (23-27); Allen Test Positive; Pt O2 Delivery Device Ventilator
[2020-07-24] MEDS: PANTOPRAZOLE 40 MG VIAL IV SCH (08:12)
[2020-07-24] MEDS ORDERED: traMADol 50 MG TABLET PO PRN (08:40)
[2020-07-24] MEDS ORDERED: guaiFENesin/DM ER 600-30 MG TABLET PO PRN (08:40)
[2020-07-24] MEDS ORDERED: traZODone 50 MG TABLET PO PRN (08:40)
[2020-07-24] MEDS ORDERED: FOLIC ACID 1 MG TABLET PO SCH (09:00)
[2020-07-24] MEDS: carvediloL 12.5 MG TABLET PO SCH ×2 (11:20→16:43)
[2020-07-24] MEDS: FOLIC ACID 1 MG TABLET PO SCH (11:20)
[2020-07-24] MEDS: DOCUSATE SODIUM 100 MG CAPSULE PO SCH ×2 (11:20→20:29)
[2020-07-24] MEDS: ASPIRIN CHEW 81 MG TABLET PO SCH (11:20)
[2020-07-24] MEDS: FERROUS SULFATE 325 MG TABLET PO SCH (11:20)
[2020-07-24] MEDS: ATORVASTATIN 40 MG TABLET PO SCH (20:29)
[2020-07-25] MEDS: ALBUTEROL/IPRATROPIUM 3 ML NEB RESP TX SCH ×4 (00:27→18:11)
[2020-07-25] MEDS: INSULIN LISPRO 100 UNIT/ML SUBCUT SCH ×5 (00:50→23:52)
[2020-07-25] MEDS: PIPERACILLIN/TAZOBACTAM 3,375 MG in SODIUM CHLORIDE 0.9% 100 ML IV SCH ×2 (04:52→12:20)
[2020-07-25 05:04] LABS: ABG Base Excess -0.4 MMOL/L (-2.5-2.5); ABG HCO3 24.6 MMOL/L (20-26); ABG Oxygen Saturation 98.2 % (95-100); ABG PCO2 41.3 MM HG (35-48); ABG PH 7.392 (7.35-7.45); ABG PO2 123.4 MM HG (80-95); ABG TCO2 25.8 MMOL/L (23-27); Allen Test Positive; Pt O2 Delivery Device Ventilator
[2020-07-25 05:26] LABS: Basophils % 0.5 % (0.0-0.8); Eosinophils # 0.1 10*3/uL (0.0-0.87); Hematocrit 24.4 VOL% (35.7-47.0); Hemoglobin 7.7 GM/DL (12.0-16.0); Immature Granulocytes % 0.3 %; Immature Granulocytes Absolute 0.02 #; Lymphocytes # 0.7 10*3/uL (1.4-4.0); Lymphocytes % 12.5 % (21.3-54.2); Mean Corpuscular HGB Conc 31.6 GM/DL (32-36); Mean Corpuscular Volume 96.4 FL (87-102); Mean Platelet Volume 10.1 FL (9.6-12.0); Monocytes % 9.5 % (1.7-12.7); Neutrophils % 75.2 % (38.7-73.9); Platelet Count 237 T/CUMM (130-400); Red Blood Count 2.53 MC/CUMM (3.8-5.5); Red Cell Distribution Width 15.7 % (9.3-17.3); White Blood Count 5.9 T/CUMM (4-12)
[2020-07-25 06:08] LABS: Calcium 8.9 MG/DL (8.5-10.1); Osmolality,Calculated 288.5 MOS/KG (273-304)
[2020-07-25] MEDS: LORazepam 2 MG/1 ML VIAL IV PRN (06:13)
[2020-07-25] MEDS: PANTOPRAZOLE 40 MG VIAL IV SCH (09:15)
[2020-07-25] MEDS: ASPIRIN CHEW 81 MG TABLET PO SCH (09:20)
[2020-07-25] MEDS: DOCUSATE SODIUM 100 MG CAPSULE PO SCH ×2 (09:20→20:48)
[2020-07-25] MEDS: carvediloL 12.5 MG TABLET PO SCH ×2 (09:20→17:25)
[2020-07-25] MEDS: FOLIC ACID 1 MG TABLET PO SCH (09:20)
[2020-07-25] MEDS: FERROUS SULFATE 325 MG TABLET PO SCH (09:20)
[2020-07-25] MEDS ORDERED: VANCOMYCIN INJ 750 MG in SODIUM CHLORIDE 0.9% 250 ML IV ONE (13:00)
[2020-07-25] MEDS ORDERED: GENTAMICIN INJ 100 MG in PREMIX 1 EACH IV PRN (17:02)
[2020-07-25] MEDS ORDERED: GENTAMICIN INJ 100 MG in PREMIX 1 EACH IV ONE (18:00)
[2020-07-25] MEDS: ATORVASTATIN 40 MG TABLET PO SCH (20:48)
[2020-07-26] MEDS: ALBUTEROL/IPRATROPIUM 3 ML NEB RESP TX SCH ×4 (00:53→18:05)
[2020-07-26 03:52] LABS: ABG Base Excess 1.9 MMOL/L (-2.5-2.5); ABG HCO3 26.5 MMOL/L (20-26); ABG Oxygen Saturation 98.1 % (95-100); ABG PCO2 41.2 MM HG (35-48); ABG PH 7.426 (7.35-7.45); ABG PO2 120.8 MM HG (80-95); ABG TCO2 27.8 MMOL/L (23-27)
[2020-07-26 04:28] LABS: Basophils % 0.7 % (0.0-0.8); Eosinophils # 0.1 10*3/uL (0.0-0.87); Hematocrit 26.2 VOL% (35.7-47.0); Hemoglobin 8.3 GM/DL (12.0-16.0); Immature Granulocytes % 0.6 %; Immature Granulocytes Absolute 0.03 #; Lymphocytes # 0.8 10*3/uL (1.4-4.0); Lymphocytes % 15.1 % (21.3-54.2); Mean Corpuscular HGB Conc 31.7 GM/DL (32-36); Mean Corpuscular Volume 95.6 FL (87-102); Neutrophils % 70.6 % (38.7-73.9); Platelet Count 254 T/CUMM (130-400); Red Blood Count 2.74 MC/CUMM (3.8-5.5); Red Cell Distribution Width 15.7 % (9.3-17.3); White Blood Count 5.4 T/CUMM (4-12)
[2020-07-26 05:12] LABS: Calcium 8.7 MG/DL (8.5-10.1); Osmolality,Calculated 281.7 MOS/KG (273-304)
[2020-07-26] MEDS: INSULIN LISPRO 100 UNIT/ML SUBCUT SCH ×3 (05:43→19:01)
[2020-07-26] MEDS: FERROUS SULFATE 325 MG TABLET PO SCH (10:00)
[2020-07-26] MEDS: carvediloL 12.5 MG TABLET PO SCH ×2 (10:00→17:16)
[2020-07-26] MEDS: PANTOPRAZOLE 40 MG VIAL IV SCH (10:00)
[2020-07-26] MEDS: ASPIRIN CHEW 81 MG TABLET PO SCH (10:00)
[2020-07-26] MEDS: FOLIC ACID 1 MG TABLET PO SCH (10:00)
[2020-07-26] MEDS: DOCUSATE SODIUM 100 MG CAPSULE PO SCH ×2 (10:02→20:50)
[2020-07-26 10:13] LABS: ABG Base Excess 1.8 MMOL/L (-2.5-2.5); ABG Oxygen Saturation 98.5 % (95-100); ABG PCO2 42.6 MM HG (35-48); ABG PH 7.405 (7.35-7.45); ABG TCO2 24.6 MMOL/L (23-27); Allen Test Positive; Pt O2 Delivery Device Ventilator
[2020-07-26] MEDS: ATORVASTATIN 40 MG TABLET PO SCH (20:49)
[2020-07-27] MEDS: ALBUTEROL/IPRATROPIUM 3 ML NEB RESP TX SCH ×4 (01:20→19:04)
[2020-07-27] MEDS: INSULIN LISPRO 100 UNIT/ML SUBCUT SCH ×4 (02:02→18:48)
[2020-07-27 03:42] LABS: ABG Base Excess 0.7 MMOL/L (-2.5-2.5); ABG Oxygen Saturation 96.3 % (95-100); ABG PCO2 45.9 MM HG (35-48); ABG PH 7.366 (7.35-7.45); ABG PO2 88.7 MM HG (80-95); ABG TCO2 24.6 MMOL/L (23-27); Allen Test Positive
[2020-07-27 03:51] LABS: Basophils % 0.6 % (0.0-0.8); Eosinophils # 0.1 10*3/uL (0.0-0.87); Eosinophils % 1.9 % (0.00-10.9); Hematocrit 28.7 VOL% (35.7-47.0); Hemoglobin 9.1 GM/DL (12.0-16.0); Immature Granulocytes % 0.4 %; Immature Granulocytes Absolute 0.03 #; Lymphocytes # 1.1 10*3/uL (1.4-4.0); Mean Corpuscular HGB Conc 31.7 GM/DL (32-36); Mean Corpuscular Volume 95.7 FL (87-102); Mean Platelet Volume 9.6 FL (9.6-12.0); Monocytes % 12.3 % (1.7-12.7); Neutrophils % 69.8 % (38.7-73.9); Platelet Count 237 T/CUMM (130-400); Red Cell Distribution Width 15.6 % (9.3-17.3)
[2020-07-27 04:16] LABS: Calcium 8.9 MG/DL (8.5-10.1); Osmolality,Calculated 282.8 MOS/KG (273-304)
[2020-07-27] MEDS: FOLIC ACID 1 MG TABLET PO SCH (08:23)
[2020-07-27] MEDS: ASPIRIN CHEW 81 MG TABLET PO SCH (08:23)
[2020-07-27] MEDS: FERROUS SULFATE 325 MG TABLET PO SCH (08:23)
[2020-07-27] MEDS: PANTOPRAZOLE 40 MG VIAL IV SCH (08:24)
[2020-07-27] MEDS: DOCUSATE SODIUM 100 MG CAPSULE PO SCH ×2 (08:24→21:44)
[2020-07-27] MEDS: carvediloL 12.5 MG TABLET PO SCH ×2 (14:45→17:20)
[2020-07-27] MEDS ORDERED: GENTAMICIN INJ 100 MG in PREMIX 1 EACH IV ONE (16:30)
[2020-07-27] MEDS ORDERED: VANCOMYCIN INJ 750 MG in SODIUM CHLORIDE 0.9% 250 ML IV ONE (17:00)
[2020-07-27] MEDS: ATORVASTATIN 40 MG TABLET PO SCH (21:44)
[2020-07-28] MEDS: ALBUTEROL/IPRATROPIUM 3 ML NEB RESP TX SCH ×2 (00:46→07:45)
[2020-07-28] MEDS: INSULIN LISPRO 100 UNIT/ML SUBCUT SCH ×3 (01:12→11:30)
[2020-07-28 04:47] LABS: Basophils # 0.1 10*3/uL (0.0-0.2); Basophils % 0.9 % (0.0-0.8); Eosinophils # 0.1 10*3/uL (0.0-0.87); Eosinophils % 2.2 % (0.00-10.9); Hematocrit 24.9 VOL% (35.7-47.0); Hemoglobin 7.7 GM/DL (12.0-16.0); Immature Granulocytes % 0.4 %; Immature Granulocytes Absolute 0.02 #; Lymphocytes # 1.2 10*3/uL (1.4-4.0); Lymphocytes % 22.3 % (21.3-54.2); Mean Corpuscular HGB Conc 30.9 GM/DL (32-36); Mean Corpuscular Volume 96.5 FL (87-102); Mean Platelet Volume 10.1 FL (9.6-12.0); Monocytes % 13.5 % (1.7-12.7); Neutrophils % 60.7 % (38.7-73.9); Platelet Count 238 T/CUMM (130-400); Red Blood Count 2.58 MC/CUMM (3.8-5.5); Red Cell Distribution Width 15.4 % (9.3-17.3); White Blood Count 5.6 T/CUMM (4-12)
[2020-07-28 05:21] LABS: Calcium 8.9 MG/DL (8.5-10.1)
[2020-07-28] MEDS: PANTOPRAZOLE 40 MG VIAL IV SCH (08:28)
[2020-07-28] MEDS: FERROUS SULFATE 325 MG TABLET PO SCH (08:29)
[2020-07-28] MEDS: DOCUSATE SODIUM 100 MG CAPSULE PO SCH (08:29)
[2020-07-28] MEDS: ASPIRIN CHEW 81 MG TABLET PO SCH (08:29)
[2020-07-28] MEDS: FOLIC ACID 1 MG TABLET PO SCH (08:29)
[2020-07-28] MEDS: carvediloL 12.5 MG TABLET PO SCH (10:14)
[2020-07-28 11:45] VITALS: BP 160/63
== END 2020-07-28 12:13 | disposition home or self-care (01) | DRG 207 ==
LOC: EDUNIT# → N.ED 04:53 → N.EDINP 07:09 → SUATTDRO 07:09 → N.ICU 14:11 → N.5E 07-26 19:46
PROVIDERS: ADMIT Internal Medicine; ATTEND Emergency Medicine

== ENCOUNTER 2020-08-13 15:54 | Observation (INO) ==
[2020-08-13 17:33] LABS: Basophils % 0.5 % (0.0-0.8); Eosinophils % 0.5 % (0.00-10.9); Hematocrit 28.3 VOL% (35.7-47.0); Immature Granulocytes % 0.6 %; Immature Granulocytes Absolute 0.04 #; Lymphocytes # 1.1 10*3/uL (1.4-4.0); Lymphocytes % 15.8 % (21.3-54.2); Mean Corpuscular HGB Conc 31.8 GM/DL (32-36); Mean Corpuscular Volume 96.3 FL (87-102); Mean Platelet Volume 10.7 FL (9.6-12.0); Monocytes % 10.1 % (1.7-12.7); Neutrophils % 72.5 % (38.7-73.9); Platelet Count 270 T/CUMM (130-400); Red Blood Count 2.94 MC/CUMM (3.8-5.5); Red Cell Distribution Width 17.2 % (9.3-17.3); White Blood Count 6.6 T/CUMM (4-12)
[2020-08-13 17:50] LABS: INR 1.1; PT Patient Result 11.9 SECS (9.8-11.9)
[2020-08-13 17:53] LABS: Albumin 2.6 G/DL (3.4-5.0); Bilirubin,Total 0.4 MG/DL (0.2-1.0); Calcium 9.7 MG/DL (8.5-10.1); Osmolality,Calculated 265.5 MOS/KG (273-304); Total Protein 7.4 G/DL (6.4-8.3)
[2020-08-13] MEDS ORDERED: FUROSEMIDE 100 MG/10 ML VIAL IV STA (18:31)
[2020-08-13] MEDS ORDERED: FUROSEMIDE 40 MG/4 ML VIAL ONE (18:46)
[2020-08-13] MEDS ORDERED: GLUCAGON 1 MG VIAL IM PRN (18:58)
[2020-08-13] MEDS ORDERED: DEXTROSE 50% 25 GM/50 ML VIAL IV PRN (18:58)
[2020-08-13] MEDS: carvediloL 12.5 MG TABLET PO SCH (21:20)
[2020-08-13] MEDS: HEPARIN 5,000 UNIT/1 ML VIAL SUBCUT SCH (21:20)
[2020-08-13] MEDS: ATORVASTATIN 40 MG TABLET PO SCH (21:20)
[2020-08-14] MEDS: HEPARIN 5,000 UNIT/1 ML VIAL SUBCUT SCH ×3 (03:11→21:26)
[2020-08-14 05:44] LABS: Basophils % 0.5 % (0.0-0.8); Eosinophils % 0.6 % (0.00-10.9); Hematocrit 26.4 VOL% (35.7-47.0); Hemoglobin 8.4 GM/DL (12.0-16.0); Immature Granulocytes % 0.3 %; Immature Granulocytes Absolute 0.02 #; Lymphocytes # 1.5 10*3/uL (1.4-4.0); Lymphocytes % 22.9 % (21.3-54.2); Mean Corpuscular HGB Conc 31.8 GM/DL (32-36); Mean Corpuscular Volume 95.7 FL (87-102); Mean Platelet Volume 10.5 FL (9.6-12.0); Monocytes % 11.2 % (1.7-12.7); Neutrophils % 64.5 % (38.7-73.9); Platelet Count 258 T/CUMM (130-400); Red Blood Count 2.76 MC/CUMM (3.8-5.5); Red Cell Distribution Width 17.1 % (9.3-17.3); White Blood Count 6.4 T/CUMM (4-12)
[2020-08-14 05:58] LABS: Calcium 9.5 MG/DL (8.5-10.1); Osmolality,Calculated 266.4 MOS/KG (273-304)
[2020-08-14] MEDS ORDERED: POTASSIUM CHLORIDE 20 MEQ TABLET PO ONE (07:27)
[2020-08-14] MEDS ORDERED: FUROSEMIDE 40 MG/4 ML VIAL IV SCH (09:00)
[2020-08-14] MEDS ORDERED: FUROSEMIDE 40 MG TABLET PO SCH (09:00)
[2020-08-14] MEDS: lisinopriL 10 MG TABLET PO SCH (09:37)
[2020-08-14] MEDS: FOLIC ACID 1 MG TABLET PO SCH (09:37)
[2020-08-14] MEDS: carvediloL 12.5 MG TABLET PO SCH ×2 (09:37→16:18)
[2020-08-14] MEDS: PANTOPRAZOLE 40 MG TABLET PO SCH (09:37)
[2020-08-14] MEDS: CETIRIZINE 10 MG TABLET PO SCH (13:10)
[2020-08-14] MEDS: ALBUTEROL/IPRATROPIUM 3 ML NEB RESP TX SCH ×2 (13:28→19:18)
[2020-08-14] MEDS: ATORVASTATIN 40 MG TABLET PO SCH (21:26)
[2020-08-14] MEDS: FUROSEMIDE 40 MG/4 ML VIAL IV SCH (21:27)
[2020-08-14] MEDS ORDERED: MUPIROCIN 2% OINT 22 GM TUBE TOP PRN (23:56)
[2020-08-15] MEDS ORDERED: ZINC OXIDE PASTE 113 GM TUBE TOP PRN (00:06)
[2020-08-15] MEDS: ALBUTEROL/IPRATROPIUM 3 ML NEB RESP TX SCH ×2 (00:59→07:55)
[2020-08-15] MEDS: HEPARIN 5,000 UNIT/1 ML VIAL SUBCUT SCH ×2 (04:19→13:46)
[2020-08-15 05:51] LABS: Basophils % 0.5 % (0.0-0.8); Eosinophils # 0.1 10*3/uL (0.0-0.87); Eosinophils % 1.8 % (0.00-10.9); Hemoglobin 7.9 GM/DL (12.0-16.0); Immature Granulocytes % 0.4 %; Immature Granulocytes Absolute 0.02 #; Lymphocytes # 1.3 10*3/uL (1.4-4.0); Lymphocytes % 22.7 % (21.3-54.2); Mean Corpuscular HGB Conc 31.6 GM/DL (32-36); Mean Corpuscular Volume 95.8 FL (87-102); Mean Platelet Volume 10.7 FL (9.6-12.0); Monocytes % 12.1 % (1.7-12.7); Neutrophils % 62.5 % (38.7-73.9); Platelet Count 207 T/CUMM (130-400); Red Blood Count 2.61 MC/CUMM (3.8-5.5); Red Cell Distribution Width 17.2 % (9.3-17.3); White Blood Count 5.7 T/CUMM (4-12)
[2020-08-15 06:05] LABS: Calcium 9.4 MG/DL (8.5-10.1); Osmolality,Calculated 262.8 MOS/KG (273-304)
[2020-08-15] MEDS: PANTOPRAZOLE 40 MG TABLET PO SCH (08:55)
[2020-08-15] MEDS: lisinopriL 10 MG TABLET PO SCH (08:55)
[2020-08-15] MEDS: FOLIC ACID 1 MG TABLET PO SCH (08:55)
[2020-08-15] MEDS: CETIRIZINE 10 MG TABLET PO SCH (08:55)
[2020-08-15] MEDS: carvediloL 12.5 MG TABLET PO SCH (08:55)
[2020-08-15] MEDS: FUROSEMIDE 40 MG/4 ML VIAL IV SCH (08:59)
[2020-08-15 14:56] VITALS: BP 154/81
== END 2020-08-15 15:45 | disposition home or self-care (01) ==
LOC: EDUNIT# → EDBD → N.EDINP 15:54 → N.ED 15:54 → N.TELES 19:36
PROVIDERS: ADMIT Internal Medicine; ATTEND Internal Medicine

== ENCOUNTER 2020-11-06 22:26 | Observation (INO) ==
[2020-11-06] MEDS ORDERED: ASPIRIN 325 MG TABLET PO STA (22:59)
[2020-11-06] MEDS ORDERED: NITROGLYCERIN SL 0.4 MG TABLET SL PRN (22:59)
[2020-11-06 23:18] LABS: Basophils % 0.6 % (0.0-0.8); Eosinophils # 0.1 10*3/uL (0.0-0.87); Eosinophils % 1.4 % (0.00-10.9); Hemoglobin 10.3 GM/DL (12.0-16.0); Immature Granulocytes % 0.4 %; Immature Granulocytes Absolute 0.02 #; Lymphocytes # 1.3 10*3/uL (1.4-4.0); Lymphocytes % 24.9 % (21.3-54.2); Mean Corpuscular HGB Conc 33.2 GM/DL (32-36); Mean Corpuscular Volume 90.9 FL (87-102); Mean Platelet Volume 11.3 FL (9.6-12.0); Monocytes % 12.1 % (1.7-12.7); Neutrophils % 60.6 % (38.7-73.9); Platelet Count 132 T/CUMM (130-400); Red Blood Count 3.41 MC/CUMM (3.8-5.5); Red Cell Distribution Width 17.2 % (9.3-17.3); White Blood Count 5.1 T/CUMM (4-12)
[2020-11-06 23:34] LABS: INR 1.1; PT Patient Result 11.8 SECS (9.8-11.9)
[2020-11-06 23:38] LABS: Albumin 2.7 G/DL (3.4-5.0); Bilirubin,Total 1.5 MG/DL (0.2-1.0); Calcium 9.6 MG/DL (8.5-10.1); Osmolality,Calculated 272.8 MOS/KG (273-304); Total Protein 6.9 G/DL (6.4-8.3)
[2020-11-07] MEDS ORDERED: ACETAMINOPHEN 325 MG TABLET PO PRN (01:29)
[2020-11-07] MEDS ORDERED: DEXTROSE 50% 25 GM/50 ML VIAL IV PRN ×2 (01:29→02:57)
[2020-11-07] MEDS ORDERED: ONDANSETRON 4 MG/2 ML VIAL IV PRN (01:29)
[2020-11-07] MEDS ORDERED: GLUCAGON 1 MG VIAL IM PRN ×2 (01:29→02:57)
[2020-11-07] MEDS: ALBUTEROL/IPRATROPIUM 3 ML NEB RESP TX SCH ×3 (07:01→19:27)
[2020-11-07] MEDS: INSULIN REGULAR 100 UNIT/ML SUBCUT SCH ×4 (08:46→21:59)
[2020-11-07] MEDS: ENOXAPARIN 30 MG/0.3 ML SYRINGE SUBCUT SCH (08:48)
[2020-11-07] MEDS: carvediloL 12.5 MG TABLET PO SCH ×2 (08:48→21:58)
[2020-11-07] MEDS: PANTOPRAZOLE 40 MG TABLET PO SCH (08:48)
[2020-11-07] MEDS: ASPIRIN EC 81 MG TABLET PO SCH (08:48)
[2020-11-07] MEDS: FUROSEMIDE 40 MG/4 ML VIAL IV SCH (08:48)
[2020-11-07 08:52] LABS: Risk Ratio 2.02; VLDL CHOLESTEROL 12.2 MG/DL
[2020-11-07 10:42] LABS: Troponin I 0.042 NG/ML (0.00-0.045)
[2020-11-07] MEDS ORDERED: traZODone 50 MG TABLET PO PRN (20:48)
[2020-11-07] MEDS: ROSUVASTATIN 20 MG TABLET PO SCH (21:59)
[2020-11-08] MEDS: ALBUTEROL/IPRATROPIUM 3 ML NEB RESP TX SCH ×4 (01:53→19:33)
[2020-11-08 06:25] LABS: Basophils % 0.4 % (0.0-0.8); Eosinophils # 0.1 10*3/uL (0.0-0.87); Hematocrit 29.8 VOL% (35.7-47.0); Hemoglobin 9.9 GM/DL (12.0-16.0); Immature Granulocytes % 0.4 %; Immature Granulocytes Absolute 0.02 #; Lymphocytes # 1.3 10*3/uL (1.4-4.0); Lymphocytes % 24.5 % (21.3-54.2); Mean Corpuscular HGB Conc 33.2 GM/DL (32-36); Mean Platelet Volume 11.2 FL (9.6-12.0); Monocytes % 12.1 % (1.7-12.7); Neutrophils % 61.6 % (38.7-73.9); Platelet Count 124 T/CUMM (130-400); Red Blood Count 3.24 MC/CUMM (3.8-5.5); Red Cell Distribution Width 17.1 % (9.3-17.3); White Blood Count 5.1 T/CUMM (4-12)
[2020-11-08 06:50] LABS: Osmolality,Calculated 271.7 MOS/KG (273-304); Osmolality,Calculated 273.5 MOS/KG (273-304)
[2020-11-08 07:04] LABS: Anisocytosis 1+; Hypochromasia 2+
[2020-11-08] MEDS ORDERED: POTASSIUM CHLORIDE RIDER 10 MEQ in PREMIX 1 EACH IV PRN (08:04)
[2020-11-08] MEDS ORDERED: MAGNESIUM SULF RIDER 2 GM in PREMIX 1 EACH IV PRN (08:04)
[2020-11-08] MEDS: ASPIRIN EC 81 MG TABLET PO SCH (08:36)
[2020-11-08] MEDS: PANTOPRAZOLE 40 MG TABLET PO SCH (08:36)
[2020-11-08] MEDS: carvediloL 12.5 MG TABLET PO SCH ×2 (08:36→23:15)
[2020-11-08] MEDS: FUROSEMIDE 40 MG/4 ML VIAL IV SCH (08:37)
[2020-11-08] MEDS: ENOXAPARIN 30 MG/0.3 ML SYRINGE SUBCUT SCH (08:37)
[2020-11-08] MEDS: INSULIN REGULAR 100 UNIT/ML SUBCUT SCH ×4 (08:38→23:15)
[2020-11-08] MEDS ORDERED: TEMAZEPAM 7.5 MG CAPSULE PO PRN (11:42)
[2020-11-08] MEDS: ROSUVASTATIN 20 MG TABLET PO SCH (23:14)
[2020-11-09] MEDS: ALBUTEROL/IPRATROPIUM 3 ML NEB RESP TX SCH ×4 (00:38→19:21)
[2020-11-09 06:46] LABS: Basophils % 0.6 % (0.0-0.8); Eosinophils % 0.8 % (0.00-10.9); Hematocrit 29.6 VOL% (35.7-47.0); Hemoglobin 10.1 GM/DL (12.0-16.0); Immature Granulocytes % 0.4 %; Immature Granulocytes Absolute 0.02 #; Lymphocytes # 1.1 10*3/uL (1.4-4.0); Lymphocytes % 22.7 % (21.3-54.2); Mean Corpuscular HGB Conc 34.1 GM/DL (32-36); Mean Corpuscular Volume 91.1 FL (87-102); Mean Platelet Volume 10.9 FL (9.6-12.0); Neutrophils % 64.5 % (38.7-73.9); Platelet Count 112 T/CUMM (130-400); Red Blood Count 3.25 MC/CUMM (3.8-5.5); Red Cell Distribution Width 17.2 % (9.3-17.3); White Blood Count 4.9 T/CUMM (4-12)
[2020-11-09 06:48] LABS: INR 1.2; PT Patient Result 12.3 SECS (9.8-11.9)
[2020-11-09 07:05] LABS: Hypochromasia 1+; Ovalocytes Slight; Platelet Estimate Decreased
[2020-11-09 07:06] LABS: Calcium 9.1 MG/DL (8.5-10.1); Osmolality,Calculated 271.9 MOS/KG (273-304)
[2020-11-09] MEDS: ASPIRIN EC 81 MG TABLET PO SCH (09:01)
[2020-11-09] MEDS: ENOXAPARIN 30 MG/0.3 ML SYRINGE SUBCUT SCH (09:01)
[2020-11-09] MEDS: PANTOPRAZOLE 40 MG TABLET PO SCH (09:01)
[2020-11-09] MEDS: carvediloL 12.5 MG TABLET PO SCH ×2 (09:01→21:36)
[2020-11-09] MEDS: INSULIN REGULAR 100 UNIT/ML SUBCUT SCH ×4 (09:02→21:36)
[2020-11-09] MEDS ORDERED: diphenhydrAMINE CAP 25 MG CAPSULE PO ONE (12:01)
[2020-11-09] MEDS ORDERED: DIAZEPAM 5 MG TABLET PO ONE (12:01)
[2020-11-09] MEDS ORDERED: LIDOCAINE 1% 20 ML VIAL ONE ×2 (12:19→12:24)
[2020-11-09] MEDS ORDERED: HEPARIN/NACL 0.9% 2 UNITS/ML 0 ML IV ONE (12:19)
[2020-11-09] MEDS ORDERED: HEPARIN/NACL 0.9% 2 UNITS/ML 1,000 ML IV ONE (12:24)
[2020-11-09] MEDS ORDERED: MIDAZOLAM 2 MG/2 ML VIAL ONE (12:24)
[2020-11-09] MEDS ORDERED: HYDROmorphone 2 MG/1 ML VIAL ONE (12:24)
[2020-11-09] MEDS ORDERED: diphenhydrAMINE 50 MG/1 ML VIAL ONE (12:58)
[2020-11-09] MEDS ORDERED: BIVALIRUDIN 250 MG VIAL IV ONE (13:24)
[2020-11-09] MEDS ORDERED: DEXTROSE 50% 25 GM/50 ML VIAL IV PRN (14:13)
[2020-11-09] MEDS ORDERED: CLOPIDOGREL 300 MG TABLET ONE (14:17)
[2020-11-09] MEDS ORDERED: CLOPIDOGREL 300 MG TABLET PO ONE ×2 (14:22→20:00)
[2020-11-09] MEDS: FUROSEMIDE 40 MG/4 ML VIAL IV SCH (16:43)
[2020-11-09] MEDS: ROSUVASTATIN 20 MG TABLET PO SCH (21:36)
[2020-11-10] MEDS: ALBUTEROL/IPRATROPIUM 3 ML NEB RESP TX SCH ×2 (01:16→09:23)
[2020-11-10 05:05] LABS: Basophils % 0.2 % (0.0-0.8); Hematocrit 32.9 VOL% (35.7-47.0); Hemoglobin 10.7 GM/DL (12.0-16.0); Immature Granulocytes % 0.7 %; Immature Granulocytes Absolute 0.07 #; Lymphocytes # 0.8 10*3/uL (1.4-4.0); Lymphocytes % 8.1 % (21.3-54.2); Mean Corpuscular HGB Conc 32.5 GM/DL (32-36); Mean Corpuscular Volume 93.5 FL (87-102); Mean Platelet Volume 11.9 FL (9.6-12.0); Monocytes % 5.4 % (1.7-12.7); Neutrophils % 85.6 % (38.7-73.9); Platelet Count 108 T/CUMM (130-400); Red Blood Count 3.52 MC/CUMM (3.8-5.5); Red Cell Distribution Width 17.5 % (9.3-17.3)
[2020-11-10 05:09] LABS: White Blood Count 10.3 T/CUMM (4-12)
[2020-11-10 05:21] LABS: Calcium 9.1 MG/DL (8.5-10.1); Osmolality,Calculated 270.8 MOS/KG (273-304)
[2020-11-10 05:29] LABS: Hypochromasia 1+
[2020-11-10 05:30] LABS: Ovalocytes Slight
[2020-11-10] MEDS ORDERED: CLOPIDOGREL 75 MG TABLET PO SCH (09:00)
[2020-11-10] MEDS: carvediloL 12.5 MG TABLET PO SCH (09:15)
[2020-11-10] MEDS: INSULIN REGULAR 100 UNIT/ML SUBCUT SCH ×2 (09:15→11:53)
[2020-11-10] MEDS: PANTOPRAZOLE 40 MG TABLET PO SCH (09:15)
[2020-11-10] MEDS: ASPIRIN EC 81 MG TABLET PO SCH (09:15)
[2020-11-10] MEDS: FUROSEMIDE 40 MG/4 ML VIAL IV SCH (09:25)
[2020-11-10 11:41] VITALS: BP 106/60
== END 2020-11-10 11:34 | disposition home or self-care (01) ==
LOC: EDUNIT# → EDBD → N.ED 22:26 → N.EDINP 22:26 → N.TELES 11-07 01:46
PROVIDERS: ADMIT Internal Medicine; ATTEND Internal Medicine
PROC: CLCCHCL (ICD-10-PCS; 2020-11-09 12:45)

== ENCOUNTER 2020-11-19 06:36 | Observation (INO) ==
[2020-11-19 06:58] LABS: Basophils % 0.5 % (0.0-0.8); Eosinophils # 0.1 10*3/uL (0.0-0.87); Eosinophils % 1.3 % (0.00-10.9); Hematocrit 32.9 VOL% (35.7-47.0); Immature Granulocytes % 0.5 %; Immature Granulocytes Absolute 0.03 #; Lymphocytes # 1.2 10*3/uL (1.4-4.0); Lymphocytes % 19.4 % (21.3-54.2); Mean Corpuscular HGB Conc 33.4 GM/DL (32-36); Mean Corpuscular Volume 92.4 FL (87-102); Mean Platelet Volume 10.3 FL (9.6-12.0); Neutrophils % 69.3 % (38.7-73.9); Platelet Count 173 T/CUMM (130-400); Red Blood Count 3.56 MC/CUMM (3.8-5.5); Red Cell Distribution Width 17.9 % (9.3-17.3); White Blood Count 6.2 T/CUMM (4-12)
[2020-11-19 07:08] LABS: INR 1.1; Partial Thromboplastin Time 32.5 SECS (23.9-33.8)
[2020-11-19 07:23] LABS: Albumin 2.8 G/DL (3.4-5.0); Bilirubin,Total 0.6 MG/DL (0.2-1.0); Calcium 9.4 MG/DL (8.5-10.1); Osmolality,Calculated 261.6 MOS/KG (273-304); Total Protein 7.7 G/DL (6.4-8.3)
[2020-11-19] MEDS ORDERED: VANCOMYCIN INJ 1,000 MG in SODIUM CHLORIDE 0.9% 250 ML IV STA (07:49)
[2020-11-19] MEDS ORDERED: LOPERAMIDE 2 MG CAPSULE PO STA (07:50)
[2020-11-19] MEDS ORDERED: DEXTROSE 50% 25 GM/50 ML VIAL IV PRN ×2 (10:03→10:23)
[2020-11-19] MEDS ORDERED: hydrALAZINE 20 MG/1 ML VIAL IV PRN (10:03)
[2020-11-19] MEDS ORDERED: DOCUSATE SODIUM 100 MG CAPSULE PO PRN (10:03)
[2020-11-19] MEDS ORDERED: ONDANSETRON 4 MG/2 ML VIAL IV PRN (10:03)
[2020-11-19] MEDS ORDERED: BISACODYL 5 MG TABLET PO PRN (10:03)
[2020-11-19] MEDS ORDERED: ACETAMINOPHEN 325 MG TABLET PO PRN (10:03)
[2020-11-19] MEDS ORDERED: GLUCAGON 1 MG VIAL IM PRN ×2 (10:03→10:23)
[2020-11-19] MEDS: INSULIN LISPRO 100 UNIT/ML SUBCUT SCH ×3 (11:58→20:24)
[2020-11-19] MEDS: PANTOPRAZOLE 40 MG TABLET PO SCH (14:48)
[2020-11-19] MEDS: ENOXAPARIN 30 MG/0.3 ML SYRINGE SUBCUT SCH (20:21)
[2020-11-20 06:52] LABS: Basophils % 0.8 % (0.0-0.8); Eosinophils # 0.1 10*3/uL (0.0-0.87); Eosinophils % 1.4 % (0.00-10.9); Hemoglobin 10.3 GM/DL (12.0-16.0); Immature Granulocytes % 0.2 %; Immature Granulocytes Absolute 0.01 #; Lymphocytes # 0.8 10*3/uL (1.4-4.0); Lymphocytes % 15.8 % (21.3-54.2); Mean Corpuscular HGB Conc 33.2 GM/DL (32-36); Mean Corpuscular Volume 92.8 FL (87-102); Mean Platelet Volume 10.9 FL (9.6-12.0); Neutrophils % 69.8 % (38.7-73.9); Platelet Count 162 T/CUMM (130-400); Red Blood Count 3.34 MC/CUMM (3.8-5.5); Red Cell Distribution Width 17.7 % (9.3-17.3); White Blood Count 5.2 T/CUMM (4-12)
[2020-11-20 07:09] LABS: Albumin 2.4 G/DL (3.4-5.0); Bilirubin,Total 0.5 MG/DL (0.2-1.0); Calcium 9.3 MG/DL (8.5-10.1); Osmolality,Calculated 266.1 MOS/KG (273-304); Total Protein 6.8 G/DL (6.4-8.3)
[2020-11-20] MEDS: INSULIN LISPRO 100 UNIT/ML SUBCUT SCH ×4 (08:18→21:05)
[2020-11-20] MEDS: PANTOPRAZOLE 40 MG TABLET PO SCH (08:19)
[2020-11-20] MEDS ORDERED: methylPREDNISolone SOD SUC 125 MG/2 ML VIAL IV PRN (11:30)
[2020-11-20] MEDS ORDERED: diphenhydrAMINE 50 MG/1 ML VIAL IV PRN (11:31)
[2020-11-20] MEDS: cefTRIAXone 1,000 MG in SYRINGE 1 EACH IV SCH (12:27)
[2020-11-20] MEDS: AZITHROMYCIN INJ 500 MG in SODIUM CHLORIDE 0.9% 250 ML IV SCH (12:28)
[2020-11-20] MEDS: ENOXAPARIN 30 MG/0.3 ML SYRINGE SUBCUT SCH (21:03)
[2020-11-21 06:39] LABS: Basophils % 0.5 % (0.0-0.8); Eosinophils # 0.1 10*3/uL (0.0-0.87); Eosinophils % 0.9 % (0.00-10.9); Hematocrit 31.9 VOL% (35.7-47.0); Hemoglobin 10.5 GM/DL (12.0-16.0); Immature Granulocytes % 0.4 %; Immature Granulocytes Absolute 0.02 #; Lymphocytes # 1.1 10*3/uL (1.4-4.0); Lymphocytes % 19.8 % (21.3-54.2); Mean Corpuscular HGB Conc 32.9 GM/DL (32-36); Mean Corpuscular Volume 93.3 FL (87-102); Mean Platelet Volume 10.9 FL (9.6-12.0); Monocytes % 12.6 % (1.7-12.7); Neutrophils % 65.8 % (38.7-73.9); Platelet Count 157 T/CUMM (130-400); Red Blood Count 3.42 MC/CUMM (3.8-5.5); Red Cell Distribution Width 17.7 % (9.3-17.3); White Blood Count 5.5 T/CUMM (4-12)
[2020-11-21 07:06] LABS: Calcium 9.5 MG/DL (8.5-10.1); Osmolality,Calculated 269.1 MOS/KG (273-304)
[2020-11-21] MEDS: INSULIN LISPRO 100 UNIT/ML SUBCUT SCH ×4 (08:47→20:00)
[2020-11-21] MEDS: cefTRIAXone 1,000 MG in SYRINGE 1 EACH IV SCH (08:49)
[2020-11-21] MEDS: PANTOPRAZOLE 40 MG TABLET PO SCH (08:49)
[2020-11-21] MEDS: AZITHROMYCIN INJ 500 MG in SODIUM CHLORIDE 0.9% 250 ML IV SCH (08:50)
[2020-11-21] MEDS ORDERED: TOLVAPTAN 15 MG TABLET PO ONE (11:18)
[2020-11-21] MEDS: ENOXAPARIN 30 MG/0.3 ML SYRINGE SUBCUT SCH (20:01)
[2020-11-22 05:42] LABS: Calcium 9.4 MG/DL (8.5-10.1); Osmolality,Calculated 273.9 MOS/KG (273-304)
[2020-11-22] MEDS: INSULIN LISPRO 100 UNIT/ML SUBCUT SCH (07:46)
[2020-11-22 08:28] VITALS: BP 138/57
[2020-11-22] MEDS: cefTRIAXone 1,000 MG in SYRINGE 1 EACH IV SCH (08:50)
[2020-11-22] MEDS: PANTOPRAZOLE 40 MG TABLET PO SCH (08:50)
[2020-11-22] MEDS: AZITHROMYCIN INJ 500 MG in SODIUM CHLORIDE 0.9% 250 ML IV SCH (08:51)
== END 2020-11-22 11:10 | disposition left against medical advice (07) ==
LOC: EDUNIT# → EDBD → N.ED 06:36 → N.EDINP 06:36 → SUATTDRO 10:03 → N.2E 13:50
PROVIDERS: ADMIT Internal Medicine Geriatric Medicine; ATTEND Internal Medicine

== ENCOUNTER 2020-12-11 02:34 | Observation (INO) ==
[2020-12-11 03:26] LABS: Basophils % 0.4 % (0.0-0.8); Eosinophils % 0.8 % (0.00-10.9); Hemoglobin 10.5 GM/DL (12.0-16.0); Immature Granulocytes % 0.6 %; Immature Granulocytes Absolute 0.03 #; Lymphocytes # 0.8 10*3/uL (1.4-4.0); Lymphocytes % 16.9 % (21.3-54.2); Mean Corpuscular HGB Conc 32.8 GM/DL (32-36); Mean Corpuscular Volume 95.5 FL (87-102); Mean Platelet Volume 11.5 FL (9.6-12.0); Monocytes % 7.7 % (1.7-12.7); Neutrophils % 73.6 % (38.7-73.9); Platelet Count 118 T/CUMM (130-400); Red Blood Count 3.35 MC/CUMM (3.8-5.5); Red Cell Distribution Width 18.5 % (9.3-17.3)
[2020-12-11 03:48] LABS: Bilirubin,Total 0.8 MG/DL (0.2-1.0); Calcium 8.5 MG/DL (8.5-10.1); Ferritin 1075.5 ng/ml (8-252); Osmolality,Calculated 264.9 MOS/KG (273-304); Total Protein 6.2 G/DL (6.4-8.3)
[2020-12-11 04:09] LABS: INR 1.1; PT Patient Result 11.4 SECS (9.8-11.9)
[2020-12-11 05:24] LABS: Lymphocytes 28 % (20-55); Segmented Neutrophils 70 % (50-85); Total Cells Counted 100
[2020-12-11 05:25] LABS: Burr Cells Few; Hypochromasia 1+; Microcytosis Slight; Ovalocytes Few; Polychromasia Slight
[2020-12-11 05:26] LABS: Platelet Estimate Adequate
[2020-12-11] MEDS ORDERED: GLUCAGON 1 MG VIAL IM PRN (05:53)
[2020-12-11] MEDS ORDERED: DOCUSATE SODIUM 100 MG CAPSULE PO PRN (05:53)
[2020-12-11] MEDS ORDERED: ONDANSETRON 4 MG/2 ML VIAL IV PRN (05:53)
[2020-12-11] MEDS ORDERED: DEXTROSE 50% 25 GM/50 ML VIAL IV PRN (05:53)
[2020-12-11] MEDS ORDERED: AZITHROMYCIN INJ 500 MG in SODIUM CHLORIDE 0.9% 250 ML IV ONE ×2 (06:01→08:00)
[2020-12-11] MEDS ORDERED: MELATONIN 3 MG TABLET PO PRN (06:01)
[2020-12-11] MEDS: ASCORBIC ACID 500 MG TABLET PO SCH ×2 (09:46→20:55)
[2020-12-11] MEDS: CHOLECALCIFEROL 1,000 UNIT TABLET PO SCH (09:46)
[2020-12-11] MEDS: ZINC GLUCONATE 50 MG TABLET PO SCH (09:46)
[2020-12-11] MEDS: FAMOTIDINE 20 MG TABLET PO SCH ×2 (09:47→20:55)
[2020-12-11] MEDS: DEXAMETHASONE 4 MG/1 ML VIAL IV SCH (09:48)
[2020-12-11] MEDS: HEPARIN 5,000 UNIT/1 ML VIAL SUBCUT SCH ×3 (10:45→22:30)
[2020-12-11] MEDS: INSULIN LISPRO 100 UNIT/ML SUBCUT SCH ×4 (10:46→20:55)
[2020-12-11] MEDS: ASPIRIN EC 81 MG TABLET PO SCH (12:25)
[2020-12-11] MEDS: CLOPIDOGREL 75 MG TABLET PO SCH (12:25)
[2020-12-11] MEDS: CETIRIZINE 10 MG TABLET PO SCH (12:26)
[2020-12-11] MEDS: carvediloL 25 MG TABLET PO SCH ×2 (12:26→17:00)
[2020-12-11] MEDS: FOLIC ACID 1 MG TABLET PO SCH (12:27)
[2020-12-11] MEDS: lisinopriL 10 MG TABLET PO SCH (12:27)
[2020-12-11] MEDS ORDERED: traZODone 50 MG TABLET PO PRN (13:46)
[2020-12-11] MEDS: NON-FORMULARY MEDICATION (Sucroferric Oxyhydroxide [Velphoro] 500 mg tablet,chewable) PO SCH ×2 (13:59→18:07)
[2020-12-11] MEDS: ACETAMINOPHEN 325 MG TABLET PO PRN (18:19)
[2020-12-12 05:42] LABS: Basophils % 0.6 % (0.0-0.8); Eosinophils % 0.3 % (0.00-10.9); Hematocrit 31.3 VOL% (35.7-47.0); Hemoglobin 9.8 GM/DL (12.0-16.0); Immature Granulocytes % 0.6 %; Immature Granulocytes Absolute 0.02 #; Lymphocytes # 0.7 10*3/uL (1.4-4.0); Lymphocytes % 19.7 % (21.3-54.2); Mean Corpuscular HGB Conc 31.3 GM/DL (32-36); Mean Corpuscular Volume 97.8 FL (87-102); Mean Platelet Volume 11.5 FL (9.6-12.0); Neutrophils % 71.8 % (38.7-73.9); Platelet Count 91 T/CUMM (130-400); Red Cell Distribution Width 18.3 % (9.3-17.3); White Blood Count 3.5 T/CUMM (4-12)
[2020-12-12 05:58] LABS: Calcium 8.5 MG/DL (8.5-10.1); Osmolality,Calculated 270.8 MOS/KG (273-304)
[2020-12-12 06:03] LABS: Hypochromasia 1+; Lymphocytes 16 % (20-55); Microcytosis 1+; Platelet Estimate Decreased; Segmented Neutrophils 79 % (50-85); Total Cells Counted 100
[2020-12-12] MEDS: HEPARIN 5,000 UNIT/1 ML VIAL SUBCUT SCH ×3 (06:15→21:56)
[2020-12-12] MEDS: ASPIRIN EC 81 MG TABLET PO SCH (08:58)
[2020-12-12] MEDS: INSULIN LISPRO 100 UNIT/ML SUBCUT SCH ×4 (08:58→20:54)
[2020-12-12] MEDS: CETIRIZINE 10 MG TABLET PO SCH (08:58)
[2020-12-12] MEDS: AZITHROMYCIN 250 MG TABLET PO SCH (08:58)
[2020-12-12] MEDS: CHOLECALCIFEROL 1,000 UNIT TABLET PO SCH (08:58)
[2020-12-12] MEDS: carvediloL 25 MG TABLET PO SCH ×2 (08:58→18:09)
[2020-12-12] MEDS: CLOPIDOGREL 75 MG TABLET PO SCH (08:58)
[2020-12-12] MEDS: ACETAMINOPHEN 325 MG TABLET PO PRN (08:59)
[2020-12-12] MEDS: FOLIC ACID 1 MG TABLET PO SCH (08:59)
[2020-12-12] MEDS: ASCORBIC ACID 500 MG TABLET PO SCH ×2 (08:59→20:53)
[2020-12-12] MEDS: FAMOTIDINE 20 MG TABLET PO SCH ×2 (08:59→20:53)
[2020-12-12] MEDS: lisinopriL 10 MG TABLET PO SCH (08:59)
[2020-12-12] MEDS: NON-FORMULARY MEDICATION (Sucroferric Oxyhydroxide [Velphoro] 500 mg tablet,chewable) PO SCH ×3 (09:00→18:10)
[2020-12-12] MEDS: ZINC GLUCONATE 50 MG TABLET PO SCH (09:00)
[2020-12-12] MEDS: DEXAMETHASONE 4 MG/1 ML VIAL IV SCH (09:00)
[2020-12-12] MEDS ORDERED: TUBERCULIN SKIN TEST 0.1 ML SYRINGE INTRADERM ONE (10:09)
[2020-12-13] MEDS: HEPARIN 5,000 UNIT/1 ML VIAL SUBCUT SCH ×2 (05:58→16:22)
[2020-12-13] MEDS: ASPIRIN EC 81 MG TABLET PO SCH (08:19)
[2020-12-13] MEDS: AZITHROMYCIN 250 MG TABLET PO SCH (08:19)
[2020-12-13] MEDS: ZINC GLUCONATE 50 MG TABLET PO SCH (08:19)
[2020-12-13] MEDS: lisinopriL 10 MG TABLET PO SCH (08:19)
[2020-12-13] MEDS: CHOLECALCIFEROL 1,000 UNIT TABLET PO SCH (08:19)
[2020-12-13] MEDS: INSULIN LISPRO 100 UNIT/ML SUBCUT SCH ×3 (08:19→17:43)
[2020-12-13] MEDS: carvediloL 25 MG TABLET PO SCH ×2 (08:20→16:43)
[2020-12-13] MEDS: FAMOTIDINE 20 MG TABLET PO SCH (08:20)
[2020-12-13] MEDS: NON-FORMULARY MEDICATION (Sucroferric Oxyhydroxide [Velphoro] 500 mg tablet,chewable) PO SCH ×2 (08:20→12:37)
[2020-12-13] MEDS: CETIRIZINE 10 MG TABLET PO SCH (08:20)
[2020-12-13] MEDS: ASCORBIC ACID 500 MG TABLET PO SCH (08:20)
[2020-12-13] MEDS: FOLIC ACID 1 MG TABLET PO SCH (08:20)
[2020-12-13] MEDS: DEXAMETHASONE 4 MG/1 ML VIAL IV SCH (08:20)
[2020-12-13] MEDS: CLOPIDOGREL 75 MG TABLET PO SCH (08:20)
[2020-12-13 16:11] VITALS: BP 141/80
== END 2020-12-13 17:44 ==
LOC: EDUNIT# → EDBD → N.EDINP 02:34 → N.ED 02:34 → SUATTDRO 05:11 → N.2E 06:24
PROVIDERS: ADMIT Internal Medicine; ATTEND Internal Medicine

== ENCOUNTER 2021-03-11 17:21 | Inpatient (IN) ==
[2021-03-11] MEDS ORDERED: DEXTROSE 50% 25 GM/50 ML SYRINGE IV STA (17:42)
[2021-03-11 18:30] LABS: Basophils % 0.2 % (0.0-0.8); Eosinophils % 0.3 % (0.00-10.9); Hematocrit 35.1 VOL% (35.7-47.0); Hemoglobin 11.1 GM/DL (12.0-16.0); Immature Granulocytes % 0.5 %; Immature Granulocytes Absolute 0.05 #; Lymphocytes # 0.6 10*3/uL (1.4-4.0); Lymphocytes % 5.9 % (21.3-54.2); Mean Corpuscular HGB Conc 31.6 GM/DL (32-36); Mean Corpuscular Volume 97.5 FL (87-102); Mean Platelet Volume 10.7 FL (9.6-12.0); Monocytes % 6.2 % (1.7-12.7); NRBC # 0.03 10*3/uL; Neutrophils % 86.9 % (38.7-73.9); Platelet Count 170 T/CUMM (130-400); Red Cell Distribution Width 17.2 % (9.3-17.3); White Blood Count 9.7 T/CUMM (4-12)
[2021-03-11 18:40] LABS: INR 1.2
[2021-03-11 18:52] LABS: Alanine Aminotransferase < 9 U/L (13-56); Albumin 2.4 G/DL (3.4-5.0); Alkaline Phosphatase 117 U/L (45-117); Aspartate Amino Transferase 16 U/L (0-37); Blood Urea Nitrogen 17 MG/DL (7-18); Calcium 9.3 MG/DL (8.5-10.1); Carbon Dioxide 35 MMOL/L (21-32); Glucose 80 MG/DL (74-106); Osmolality,Calculated 268.2 MOS/KG (273-304); Potassium 3.2 MMOL/L (3.5-5.1); Sodium 134 MMOL/L (136-145); Total Protein 7.8 G/DL (6.4-8.2)
[2021-03-11 18:53] LABS: Estimated Glom Filtration Rate 0 ML/MIN
[2021-03-11] MEDS ORDERED: DEXTROSE 50% 25 GM/50 ML VIAL IV PRN (20:40)
[2021-03-11] MEDS ORDERED: hydrALAZINE 20 MG/1 ML VIAL IV PRN (20:40)
[2021-03-11] MEDS ORDERED: GLUCAGON 1 MG VIAL IM PRN (20:40)
[2021-03-11] MEDS ORDERED: ONDANSETRON 4 MG/2 ML VIAL IV PRN (20:40)
[2021-03-12] MEDS: ALBUTEROL/IPRATROPIUM 3 ML NEB RESP TX SCH ×4 (01:00→19:14)
[2021-03-12 06:12] LABS: Alanine Aminotransferase < 6 U/L (13-56); Alkaline Phosphatase 92 U/L (45-117); Aspartate Amino Transferase 12 U/L (0-37); Blood Urea Nitrogen 20 MG/DL (7-18); Carbon Dioxide 33 MMOL/L (21-32); Estimated Glom Filtration Rate 22 ML/MIN; Glucose 74 MG/DL (74-106); Osmolality,Calculated 271.1 MOS/KG (273-304); Sodium 135 MMOL/L (136-145); Total Protein 6.3 G/DL (6.4-8.2)
[2021-03-12] MEDS: ASPIRIN EC 81 MG TABLET PO SCH (08:34)
[2021-03-12] MEDS: CLOPIDOGREL 75 MG TABLET PO SCH (08:34)
[2021-03-12] MEDS: MEROPENEM 500 MG in SODIUM CHLORIDE 0.9% 100 ML IV SCH ×2 (08:34→21:49)
[2021-03-12] MEDS: carvediloL 12.5 MG TABLET PO SCH (08:35)
[2021-03-12] MEDS: SERTRALINE 100 MG TABLET PO SCH (08:35)
[2021-03-12] MEDS: AZITHROMYCIN INJ 500 MG in SODIUM CHLORIDE 0.9% 250 ML IV SCH (08:35)
[2021-03-12] MEDS: FERROUS SULFATE 325 MG TABLET PO SCH ×3 (08:35→16:13)
[2021-03-12] MEDS: ATORVASTATIN 40 MG TABLET PO SCH (08:35)
[2021-03-12] MEDS ORDERED: POTASSIUM CHLORIDE 20 MEQ TABLET PO PRN (08:54)
[2021-03-12] MEDS: ACETAMINOPHEN 325 MG TABLET PO PRN (08:55)
[2021-03-12] MEDS ORDERED: POTASSIUM CHLORIDE 20 MEQ TABLET PO ONE (11:15)
[2021-03-12] MEDS: oxyCODONE/ACETAMINOPHEN 5-325 MG TABLET PO PRN ×2 (11:58→16:13)
[2021-03-12] MEDS: LACTULOSE 20 GM/30 ML UDCUP PO SCH ×2 (11:58→23:41)
[2021-03-12] MEDS: VELPHORO 500 MG PO SCH ×2 (11:58→16:14)
[2021-03-12] MEDS ORDERED: APIXABAN 2.5 MG TABLET PO SCH (21:00)
[2021-03-13] MEDS: ALBUTEROL/IPRATROPIUM 3 ML NEB RESP TX SCH ×4 (01:06→21:15)
[2021-03-13 06:16] LABS: Basophils % 0.2 % (0.0-0.8); Hemoglobin 9.8 GM/DL (12.0-16.0); Immature Granulocytes % 2.8 %; Immature Granulocytes Absolute 0.37 #; Lymphocytes # 1.2 10*3/uL (1.4-4.0); Lymphocytes % 9.2 % (21.3-54.2); Mean Corpuscular HGB Conc 31.6 GM/DL (32-36); Mean Corpuscular Volume 95.4 FL (87-102); Mean Platelet Volume 11.3 FL (9.6-12.0); Monocytes % 8.5 % (1.7-12.7); NRBC # 0.03 10*3/uL; Neutrophils % 79.3 % (38.7-73.9); Platelet Count 163 T/CUMM (130-400); Red Blood Count 3.25 MC/CUMM (3.8-5.5); Red Cell Distribution Width 17.2 % (9.3-17.3); White Blood Count 13.1 T/CUMM (4-12)
[2021-03-13 06:30] LABS: Calcium 9.6 MG/DL (8.5-10.1); Osmolality,Calculated 266.7 MOS/KG (273-304); Potassium 3.9 MMOL/L (3.5-5.1)
[2021-03-13] MEDS: carvediloL 12.5 MG TABLET PO SCH (09:07)
[2021-03-13] MEDS: FERROUS SULFATE 325 MG TABLET PO SCH ×3 (09:07→17:13)
[2021-03-13] MEDS: LACTULOSE 20 GM/30 ML UDCUP PO SCH ×2 (09:07→21:01)
[2021-03-13] MEDS: FOLIC ACID 1 MG TABLET PO SCH (09:07)
[2021-03-13] MEDS: ASPIRIN EC 81 MG TABLET PO SCH (09:07)
[2021-03-13] MEDS: cloNIDine 0.1 MG TABLET PO SCH (09:07)
[2021-03-13] MEDS: CLOPIDOGREL 75 MG TABLET PO SCH (09:07)
[2021-03-13] MEDS: LISINOPRIL/HCTZ 10-12.5 MG TABLET PO SCH (09:08)
[2021-03-13] MEDS: SERTRALINE 100 MG TABLET PO SCH (09:08)
[2021-03-13] MEDS: ATORVASTATIN 40 MG TABLET PO SCH (09:08)
[2021-03-13] MEDS: AZITHROMYCIN INJ 500 MG in SODIUM CHLORIDE 0.9% 250 ML IV SCH (09:27)
[2021-03-13] MEDS: VELPHORO 500 MG PO SCH ×3 (09:28→17:09)
[2021-03-13] MEDS: MEROPENEM 500 MG in SODIUM CHLORIDE 0.9% 100 ML IV SCH ×2 (09:43→21:07)
[2021-03-13] MEDS ORDERED: VANCOMYCIN INJ 2,250 MG in SODIUM CHLORIDE 0.9% 500 ML IV ONE (13:00)
[2021-03-13] MEDS: ACETAMINOPHEN 325 MG TABLET PO PRN (21:15)
[2021-03-14] MEDS: ALBUTEROL/IPRATROPIUM 3 ML NEB RESP TX SCH ×4 (01:25→20:23)
[2021-03-14 08:01] LABS: Basophils % 0.1 % (0.0-0.8); Eosinophils % 0.2 % (0.00-10.9); Hematocrit 31.4 VOL% (35.7-47.0); Hemoglobin 9.8 GM/DL (12.0-16.0); Immature Granulocytes % 1.5 %; Immature Granulocytes Absolute 0.21 #; Lymphocytes # 1.3 10*3/uL (1.4-4.0); Lymphocytes % 9.5 % (21.3-54.2); Mean Corpuscular HGB Conc 31.2 GM/DL (32-36); Mean Platelet Volume 11.7 FL (9.6-12.0); Monocytes % 11.7 % (1.7-12.7); NRBC # 0.03 10*3/uL; Platelet Count 170 T/CUMM (130-400); Red Blood Count 3.27 MC/CUMM (3.8-5.5); Red Cell Distribution Width 17.4 % (9.3-17.3); White Blood Count 13.6 T/CUMM (4-12)
[2021-03-14 08:14] LABS: Calcium 9.4 MG/DL (8.5-10.1); Osmolality,Calculated 272.4 MOS/KG (273-304); Potassium 4.2 MMOL/L (3.5-5.1)
[2021-03-14 08:48] LABS: Hypochromasia 1+; Platelet Estimate Adequate
[2021-03-14] MEDS: MEROPENEM 500 MG in SODIUM CHLORIDE 0.9% 100 ML IV SCH (09:24)
[2021-03-14] MEDS: VELPHORO 500 MG PO SCH ×3 (09:24→16:23)
[2021-03-14 11:24] LABS: Hepatitis B Core IgM Quant 0.16 Index; Hepatitis B Surface Ag Quant 0.29 Index; Hepatitis B Surface Ag Result Non-Reactive (NonReactive); Hepatitis C Virus Ab Quant 0.23 Index; Hepatitis C Virus Ab Result Non-Reactive (NonReactive)
[2021-03-14] MEDS ORDERED: HEPARIN 10,000 UNIT/10 ML VIAL IV PRN (11:56)
[2021-03-14] MEDS: FERROUS SULFATE 325 MG TABLET PO SCH ×4 (12:54→16:23)
[2021-03-14] MEDS: SERTRALINE 100 MG TABLET PO SCH (13:54)
[2021-03-14] MEDS: LACTULOSE 20 GM/30 ML UDCUP PO SCH ×2 (13:54→20:58)
[2021-03-14] MEDS: ASPIRIN EC 81 MG TABLET PO SCH (15:56)
[2021-03-14] MEDS: CLOPIDOGREL 75 MG TABLET PO SCH (15:57)
[2021-03-14] MEDS: FOLIC ACID 1 MG TABLET PO SCH (15:57)
[2021-03-14] MEDS: carvediloL 12.5 MG TABLET PO SCH (15:57)
[2021-03-14] MEDS: cloNIDine 0.1 MG TABLET PO SCH (15:57)
[2021-03-14] MEDS: LISINOPRIL/HCTZ 10-12.5 MG TABLET PO SCH (15:58)
[2021-03-14] MEDS: ATORVASTATIN 40 MG TABLET PO SCH (15:58)
[2021-03-14] MEDS ORDERED: VANCOMYCIN INJ 750 MG in SODIUM CHLORIDE 0.9% 250 ML IV ONE (17:00)
[2021-03-14] MEDS ORDERED: VANCOMYCIN INJ 750 MG in SODIUM CHLORIDE 0.9% 250 ML IV PRN (17:00)
[2021-03-15] MEDS: ALBUTEROL/IPRATROPIUM 3 ML NEB RESP TX SCH ×4 (00:25→19:22)
[2021-03-15 07:05] LABS: Basophils % 0.2 % (0.0-0.8); Eosinophils # 0.1 10*3/uL (0.0-0.87); Eosinophils % 0.7 % (0.00-10.9); Hematocrit 28.6 VOL% (35.7-47.0); Hemoglobin 9.1 GM/DL (12.0-16.0); Immature Granulocytes % 2.6 %; Immature Granulocytes Absolute 0.21 #; Lymphocytes # 1.1 10*3/uL (1.4-4.0); Lymphocytes % 13.7 % (21.3-54.2); Mean Corpuscular HGB Conc 31.8 GM/DL (32-36); Mean Corpuscular Volume 96.3 FL (87-102); Monocytes % 12.7 % (1.7-12.7); NRBC # 0.06 10*3/uL; Neutrophils % 70.1 % (38.7-73.9); Platelet Count 126 T/CUMM (130-400); Red Blood Count 2.97 MC/CUMM (3.8-5.5); Red Cell Distribution Width 17.7 % (9.3-17.3); White Blood Count 8.2 T/CUMM (4-12)
[2021-03-15 07:22] LABS: Osmolality,Calculated 270.2 MOS/KG (273-304); Potassium 4.4 MMOL/L (3.5-5.1)
[2021-03-15] MEDS: LISINOPRIL/HCTZ 10-12.5 MG TABLET PO SCH (09:10)
[2021-03-15] MEDS: LACTULOSE 20 GM/30 ML UDCUP PO SCH ×2 (09:10→20:53)
[2021-03-15] MEDS: ATORVASTATIN 40 MG TABLET PO SCH (09:11)
[2021-03-15] MEDS: cloNIDine 0.1 MG TABLET PO SCH (09:11)
[2021-03-15] MEDS: carvediloL 12.5 MG TABLET PO SCH (09:11)
[2021-03-15] MEDS: CLOPIDOGREL 75 MG TABLET PO SCH (09:11)
[2021-03-15] MEDS: ASPIRIN EC 81 MG TABLET PO SCH (09:11)
[2021-03-15] MEDS: FERROUS SULFATE 325 MG TABLET PO SCH ×3 (09:11→16:21)
[2021-03-15] MEDS: FOLIC ACID 1 MG TABLET PO SCH (09:11)
[2021-03-15] MEDS: VELPHORO 500 MG PO SCH ×3 (09:12→16:22)
[2021-03-16] MEDS: ALBUTEROL/IPRATROPIUM 3 ML NEB RESP TX SCH ×4 (00:48→19:12)
[2021-03-16] MEDS ORDERED: propofoL 200 MG/20 ML VIAL IV ONE (08:25)
[2021-03-16] MEDS ORDERED: ETOMIDATE 40 MG/20 ML VIAL IV ONE (08:25)
[2021-03-16] MEDS ORDERED: LIDOCAINE 2% 5 ML VIAL ONE (08:25)
[2021-03-16] MEDS: SODIUM CHLORIDE 0.9% 1,000 ML IV SCH (08:38)
[2021-03-16] MEDS: FERROUS SULFATE 325 MG TABLET PO SCH ×3 (09:25→16:57)
[2021-03-16] MEDS: VELPHORO 500 MG PO SCH ×3 (09:25→16:58)
[2021-03-16] MEDS: ASPIRIN EC 81 MG TABLET PO SCH (09:26)
[2021-03-16] MEDS: LACTULOSE 20 GM/30 ML UDCUP PO SCH ×2 (09:26→22:22)
[2021-03-16] MEDS: cloNIDine 0.1 MG TABLET PO SCH (09:26)
[2021-03-16] MEDS: carvediloL 12.5 MG TABLET PO SCH (09:27)
[2021-03-16] MEDS: FOLIC ACID 1 MG TABLET PO SCH (09:27)
[2021-03-16] MEDS: CLOPIDOGREL 75 MG TABLET PO SCH (09:28)
[2021-03-16] MEDS: ATORVASTATIN 40 MG TABLET PO SCH (09:28)
[2021-03-16] MEDS: LISINOPRIL/HCTZ 10-12.5 MG TABLET PO SCH (09:28)
[2021-03-16 10:02] LABS: Basophils % 0.1 % (0.0-0.8); Eosinophils # 0.1 10*3/uL (0.0-0.87); Eosinophils % 0.7 % (0.00-10.9); Hematocrit 31.2 VOL% (35.7-47.0); Hemoglobin 9.7 GM/DL (12.0-16.0); Immature Granulocytes % 1.5 %; Immature Granulocytes Absolute 0.13 #; Lymphocytes # 1.2 10*3/uL (1.4-4.0); Mean Corpuscular HGB Conc 31.1 GM/DL (32-36); Mean Corpuscular Volume 97.2 FL (87-102); Mean Platelet Volume 11.8 FL (9.6-12.0); Monocytes % 13.1 % (1.7-12.7); NRBC # 0.09 10*3/uL; Neutrophils % 70.6 % (38.7-73.9); Platelet Count 162 T/CUMM (130-400); Red Blood Count 3.21 MC/CUMM (3.8-5.5); Red Cell Distribution Width 17.7 % (9.3-17.3); White Blood Count 8.7 T/CUMM (4-12)
[2021-03-16 10:15] LABS: Calcium 9.2 MG/DL (8.5-10.1); Osmolality,Calculated 266.7 MOS/KG (273-304)
[2021-03-16] MEDS ORDERED: VANCOMYCIN INJ 750 MG in SODIUM CHLORIDE 0.9% 250 ML IV ONE (17:00)
[2021-03-17] MEDS: ALBUTEROL/IPRATROPIUM 3 ML NEB RESP TX SCH ×4 (01:00→19:58)
[2021-03-17 06:10] LABS: Basophils % 0.3 % (0.0-0.8); Eosinophils # 0.1 10*3/uL (0.0-0.87); Eosinophils % 0.6 % (0.00-10.9); Hemoglobin 9.5 GM/DL (12.0-16.0); Immature Granulocytes % 1.5 %; Immature Granulocytes Absolute 0.15 #; Lymphocytes # 1.2 10*3/uL (1.4-4.0); Lymphocytes % 12.1 % (21.3-54.2); Mean Corpuscular HGB Conc 31.7 GM/DL (32-36); Mean Corpuscular Volume 97.1 FL (87-102); Mean Platelet Volume 11.4 FL (9.6-12.0); NRBC # 0.09 10*3/uL; Neutrophils % 75.5 % (38.7-73.9); Platelet Count 182 T/CUMM (130-400); Red Blood Count 3.09 MC/CUMM (3.8-5.5); Red Cell Distribution Width 18.3 % (9.3-17.3); White Blood Count 9.7 T/CUMM (4-12)
[2021-03-17 06:31] LABS: Calcium 9.1 MG/DL (8.5-10.1); Osmolality,Calculated 268.2 MOS/KG (273-304); Potassium 4.2 MMOL/L (3.5-5.1)
[2021-03-17] MEDS: SODIUM CHLORIDE 0.9% 1,000 ML IV SCH (07:04)
[2021-03-17] MEDS: carvediloL 12.5 MG TABLET PO SCH (09:33)
[2021-03-17] MEDS: FOLIC ACID 1 MG TABLET PO SCH (09:33)
[2021-03-17] MEDS: ASPIRIN EC 81 MG TABLET PO SCH (09:33)
[2021-03-17] MEDS: FERROUS SULFATE 325 MG TABLET PO SCH ×3 (09:33→18:37)
[2021-03-17] MEDS: LISINOPRIL/HCTZ 10-12.5 MG TABLET PO SCH (09:34)
[2021-03-17] MEDS: ATORVASTATIN 40 MG TABLET PO SCH (09:34)
[2021-03-17] MEDS: cloNIDine 0.1 MG TABLET PO SCH (09:34)
[2021-03-17] MEDS: VELPHORO 500 MG PO SCH ×3 (09:35→17:50)
[2021-03-17] MEDS: LACTULOSE 20 GM/30 ML UDCUP PO SCH ×2 (09:35→20:44)
[2021-03-17] MEDS: CLOPIDOGREL 75 MG TABLET PO SCH (09:35)
[2021-03-17] MEDS ORDERED: GENTAMICIN INJ 80 MG in PREMIX 1 EACH IV PRN (13:07)
[2021-03-17] MEDS: AMPICILLIN INJ 2,000 MG in SODIUM CHLORIDE 0.9% 100 ML IV SCH ×3 (14:32→21:30)
[2021-03-17] MEDS ORDERED: GENTAMICIN INJ 80 MG in PREMIX 1 EACH IV ONE ×2 (15:00→18:00)
[2021-03-18] MEDS: ALBUTEROL/IPRATROPIUM 3 ML NEB RESP TX SCH ×4 (00:30→19:16)
[2021-03-18] MEDS: AMPICILLIN INJ 2,000 MG in SODIUM CHLORIDE 0.9% 100 ML IV SCH ×7 (02:05→21:02)
[2021-03-18 08:03] LABS: Basophils % 0.2 % (0.0-0.8); Eosinophils # 0.1 10*3/uL (0.0-0.87); Eosinophils % 0.5 % (0.00-10.9); Hematocrit 28.6 VOL% (35.7-47.0); Hemoglobin 8.9 GM/DL (12.0-16.0); Immature Granulocytes % 1.3 %; Immature Granulocytes Absolute 0.13 #; Lymphocytes # 1.3 10*3/uL (1.4-4.0); Lymphocytes % 13.2 % (21.3-54.2); Mean Corpuscular HGB Conc 31.1 GM/DL (32-36); Mean Corpuscular Volume 96.3 FL (87-102); Mean Platelet Volume 11.5 FL (9.6-12.0); Monocytes % 8.5 % (1.7-12.7); NRBC # 0.08 10*3/uL; Neutrophils % 76.3 % (38.7-73.9); Platelet Count 153 T/CUMM (130-400); Red Blood Count 2.97 MC/CUMM (3.8-5.5); Red Cell Distribution Width 18.6 % (9.3-17.3); White Blood Count 10.1 T/CUMM (4-12)
[2021-03-18 08:28] LABS: Osmolality,Calculated 264.7 MOS/KG (273-304)
[2021-03-18] MEDS: FERROUS SULFATE 325 MG TABLET PO SCH ×3 (08:52→16:41)
[2021-03-18] MEDS: cloNIDine 0.1 MG TABLET PO SCH (08:52)
[2021-03-18] MEDS: ATORVASTATIN 40 MG TABLET PO SCH (08:52)
[2021-03-18] MEDS: LISINOPRIL/HCTZ 10-12.5 MG TABLET PO SCH (08:52)
[2021-03-18] MEDS: ASPIRIN EC 81 MG TABLET PO SCH (08:52)
[2021-03-18] MEDS: carvediloL 12.5 MG TABLET PO SCH (08:53)
[2021-03-18] MEDS: FOLIC ACID 1 MG TABLET PO SCH (08:53)
[2021-03-18] MEDS: CLOPIDOGREL 75 MG TABLET PO SCH (08:53)
[2021-03-18] MEDS: SODIUM CHLORIDE 0.9% 1,000 ML IV SCH (08:55)
[2021-03-18] MEDS: VELPHORO 500 MG PO SCH ×3 (08:56→16:42)
[2021-03-18] MEDS: LACTULOSE 20 GM/30 ML UDCUP PO SCH ×2 (08:57→20:43)
[2021-03-18] MEDS ORDERED: GENTAMICIN INJ 80 MG in PREMIX 1 EACH IV ONE (18:00)
[2021-03-19] MEDS: AMPICILLIN INJ 2,000 MG in SODIUM CHLORIDE 0.9% 100 ML IV SCH ×8 (01:50→22:11)
[2021-03-19] MEDS: ALBUTEROL/IPRATROPIUM 3 ML NEB RESP TX SCH ×4 (04:52→20:18)
[2021-03-19 06:11] LABS: Basophils % 0.4 % (0.0-0.8); Eosinophils # 0.1 10*3/uL (0.0-0.87); Eosinophils % 0.6 % (0.00-10.9); Hematocrit 30.3 VOL% (35.7-47.0); Hemoglobin 9.7 GM/DL (12.0-16.0); Immature Granulocytes % 1.3 %; Immature Granulocytes Absolute 0.14 #; Lymphocytes # 1.3 10*3/uL (1.4-4.0); Lymphocytes % 12.7 % (21.3-54.2); Monocytes % 8.2 % (1.7-12.7); NRBC # 0.07 10*3/uL; Neutrophils % 76.8 % (38.7-73.9); Platelet Count 144 T/CUMM (130-400); Red Blood Count 3.19 MC/CUMM (3.8-5.5); Red Cell Distribution Width 19.3 % (9.3-17.3); White Blood Count 10.5 T/CUMM (4-12)
[2021-03-19 06:28] LABS: Calcium 8.9 MG/DL (8.5-10.1); Osmolality,Calculated 264.5 MOS/KG (273-304); Potassium 4.3 MMOL/L (3.5-5.1)
[2021-03-19] MEDS: cloNIDine 0.1 MG TABLET PO SCH (08:45)
[2021-03-19] MEDS: ATORVASTATIN 40 MG TABLET PO SCH (08:45)
[2021-03-19] MEDS: ASPIRIN EC 81 MG TABLET PO SCH (08:46)
[2021-03-19] MEDS: CLOPIDOGREL 75 MG TABLET PO SCH (08:46)
[2021-03-19] MEDS: FERROUS SULFATE 325 MG TABLET PO SCH ×3 (08:46→16:30)
[2021-03-19] MEDS: FOLIC ACID 1 MG TABLET PO SCH (08:46)
[2021-03-19] MEDS: carvediloL 12.5 MG TABLET PO SCH (08:46)
[2021-03-19] MEDS: LISINOPRIL/HCTZ 10-12.5 MG TABLET PO SCH (08:46)
[2021-03-19] MEDS: LACTULOSE 20 GM/30 ML UDCUP PO SCH ×2 (08:47→21:42)
[2021-03-19] MEDS: VELPHORO 500 MG PO SCH ×3 (08:47→16:26)
[2021-03-19] MEDS: ACETAMINOPHEN 325 MG TABLET PO PRN (14:05)
[2021-03-20] MEDS: ALBUTEROL/IPRATROPIUM 3 ML NEB RESP TX SCH ×4 (01:40→19:46)
[2021-03-20] MEDS: AMPICILLIN INJ 2,000 MG in SODIUM CHLORIDE 0.9% 100 ML IV SCH ×6 (02:07→23:07)
[2021-03-20] MEDS: LACTULOSE 20 GM/30 ML UDCUP PO SCH ×2 (08:41→22:26)
[2021-03-20] MEDS: ASPIRIN EC 81 MG TABLET PO SCH (08:42)
[2021-03-20] MEDS: FOLIC ACID 1 MG TABLET PO SCH (08:42)
[2021-03-20] MEDS: VELPHORO 500 MG PO SCH ×3 (08:42→16:38)
[2021-03-20] MEDS: ATORVASTATIN 40 MG TABLET PO SCH (08:42)
[2021-03-20] MEDS: cloNIDine 0.1 MG TABLET PO SCH (08:42)
[2021-03-20] MEDS: FERROUS SULFATE 325 MG TABLET PO SCH ×3 (08:42→16:37)
[2021-03-20] MEDS: carvediloL 12.5 MG TABLET PO SCH (08:42)
[2021-03-20] MEDS: CLOPIDOGREL 75 MG TABLET PO SCH (08:42)
[2021-03-20] MEDS: LISINOPRIL/HCTZ 10-12.5 MG TABLET PO SCH (08:42)
[2021-03-20] MEDS: ACETAMINOPHEN 325 MG TABLET PO PRN ×2 (15:44→23:06)
[2021-03-20] MEDS: MENTHOL/ZINC OXIDE OINT 71 GM JAR TOP SCH ×2 (18:06→22:26)
[2021-03-21] MEDS: ALBUTEROL/IPRATROPIUM 3 ML NEB RESP TX SCH ×4 (00:48→22:42)
[2021-03-21] MEDS: AMPICILLIN INJ 2,000 MG in SODIUM CHLORIDE 0.9% 100 ML IV SCH ×6 (05:07→22:34)
[2021-03-21] MEDS: VELPHORO 500 MG PO SCH ×3 (07:51→17:36)
[2021-03-21 08:24] LABS: Basophils % 0.4 % (0.0-0.8); Eosinophils # 0.1 10*3/uL (0.0-0.87); Eosinophils % 0.7 % (0.00-10.9); Hematocrit 31.5 VOL% (35.7-47.0); Hemoglobin 9.9 GM/DL (12.0-16.0); Immature Granulocytes % 0.5 %; Immature Granulocytes Absolute 0.04 #; Lymphocytes # 1.1 10*3/uL (1.4-4.0); Lymphocytes % 14.9 % (21.3-54.2); Mean Corpuscular HGB Conc 31.4 GM/DL (32-36); Mean Corpuscular Volume 96.6 FL (87-102); Mean Platelet Volume 11.2 FL (9.6-12.0); Monocytes % 10.2 % (1.7-12.7); NRBC # 0.03 10*3/uL; Neutrophils % 73.3 % (38.7-73.9); Platelet Count 147 T/CUMM (130-400); Red Blood Count 3.26 MC/CUMM (3.8-5.5); Red Cell Distribution Width 20.1 % (9.3-17.3); White Blood Count 7.7 T/CUMM (4-12)
[2021-03-21 08:40] LABS: Osmolality,Calculated 263.8 MOS/KG (273-304); Potassium 4.5 MMOL/L (3.5-5.1)
[2021-03-21] MEDS: LACTULOSE 20 GM/30 ML UDCUP PO SCH ×2 (10:14→21:45)
[2021-03-21] MEDS ORDERED: LIDOCAINE 1% 20 ML VIAL IM ONE (12:11)
[2021-03-21] MEDS: FOLIC ACID 1 MG TABLET PO SCH (12:38)
[2021-03-21] MEDS: ASPIRIN EC 81 MG TABLET PO SCH (12:38)
[2021-03-21] MEDS: CLOPIDOGREL 75 MG TABLET PO SCH (12:39)
[2021-03-21] MEDS: carvediloL 12.5 MG TABLET PO SCH (12:39)
[2021-03-21] MEDS: LISINOPRIL/HCTZ 10-12.5 MG TABLET PO SCH (12:39)
[2021-03-21] MEDS: cloNIDine 0.1 MG TABLET PO SCH (12:39)
[2021-03-21] MEDS: ATORVASTATIN 40 MG TABLET PO SCH (12:39)
[2021-03-21] MEDS: SERTRALINE 100 MG TABLET PO SCH (12:39)
[2021-03-21] MEDS: MULTIVITAMIN (CENTRUM) TABLET PO SCH (12:39)
[2021-03-21] MEDS: MENTHOL/ZINC OXIDE OINT 71 GM JAR TOP SCH ×2 (12:40→21:44)
[2021-03-21] MEDS: FERROUS SULFATE 325 MG TABLET PO SCH ×2 (13:07→17:45)
[2021-03-21] MEDS ORDERED: GENTAMICIN INJ 80 MG in PREMIX 1 EACH IV ONE (17:00)
[2021-03-21] MEDS: ACETAMINOPHEN 325 MG TABLET PO PRN (18:23)
[2021-03-22] MEDS: AMPICILLIN INJ 2,000 MG in SODIUM CHLORIDE 0.9% 100 ML IV SCH ×6 (02:05→22:42)
[2021-03-22] MEDS: ALBUTEROL/IPRATROPIUM 3 ML NEB RESP TX SCH ×4 (03:56→19:32)
[2021-03-22 09:05] LABS: Basophils % 0.4 % (0.0-0.8); Eosinophils # 0.1 10*3/uL (0.0-0.87); Eosinophils % 0.6 % (0.00-10.9); Hematocrit 29.2 VOL% (35.7-47.0); Hemoglobin 9.3 GM/DL (12.0-16.0); Immature Granulocytes % 0.4 %; Immature Granulocytes Absolute 0.03 #; Lymphocytes # 1.2 10*3/uL (1.4-4.0); Lymphocytes % 15.4 % (21.3-54.2); Mean Corpuscular HGB Conc 31.8 GM/DL (32-36); Mean Corpuscular Volume 96.4 FL (87-102); Mean Platelet Volume 11.7 FL (9.6-12.0); NRBC # 0.02 10*3/uL; Neutrophils % 71.2 % (38.7-73.9); Platelet Count 132 T/CUMM (130-400); Red Blood Count 3.03 MC/CUMM (3.8-5.5); Red Cell Distribution Width 20.4 % (9.3-17.3); White Blood Count 8.1 T/CUMM (4-12)
[2021-03-22] MEDS: ATORVASTATIN 40 MG TABLET PO SCH (09:16)
[2021-03-22] MEDS: SERTRALINE 100 MG TABLET PO SCH (09:17)
[2021-03-22] MEDS: LISINOPRIL/HCTZ 10-12.5 MG TABLET PO SCH (09:17)
[2021-03-22] MEDS: carvediloL 12.5 MG TABLET PO SCH (09:17)
[2021-03-22] MEDS: FOLIC ACID 1 MG TABLET PO SCH (09:17)
[2021-03-22] MEDS: cloNIDine 0.1 MG TABLET PO SCH (09:17)
[2021-03-22] MEDS: CLOPIDOGREL 75 MG TABLET PO SCH (09:18)
[2021-03-22] MEDS: MULTIVITAMIN (CENTRUM) TABLET PO SCH (09:18)
[2021-03-22] MEDS: ASPIRIN EC 81 MG TABLET PO SCH (09:18)
[2021-03-22] MEDS: FERROUS SULFATE 325 MG TABLET PO SCH ×3 (09:19→16:54)
[2021-03-22 09:22] LABS: Calcium 8.7 MG/DL (8.5-10.1); Osmolality,Calculated 264.7 MOS/KG (273-304); Potassium 4.7 MMOL/L (3.5-5.1)
[2021-03-22] MEDS: VELPHORO 500 MG PO SCH ×3 (10:10→16:15)
[2021-03-22] MEDS: MENTHOL/ZINC OXIDE OINT 71 GM JAR TOP SCH ×2 (10:12→22:12)
[2021-03-22] MEDS: LACTULOSE 20 GM/30 ML UDCUP PO SCH ×2 (10:12→22:11)
[2021-03-23] MEDS: ALBUTEROL/IPRATROPIUM 3 ML NEB RESP TX SCH ×4 (01:30→19:31)
[2021-03-23] MEDS: AMPICILLIN INJ 2,000 MG in SODIUM CHLORIDE 0.9% 100 ML IV SCH ×6 (02:24→21:02)
[2021-03-23 05:58] LABS: Basophils % 0.4 % (0.0-0.8); Eosinophils # 0.1 10*3/uL (0.0-0.87); Eosinophils % 0.8 % (0.00-10.9); Hematocrit 29.6 VOL% (35.7-47.0); Hemoglobin 9.6 GM/DL (12.0-16.0); Immature Granulocytes % 0.7 %; Immature Granulocytes Absolute 0.06 #; Lymphocytes # 1.4 10*3/uL (1.4-4.0); Lymphocytes % 14.9 % (21.3-54.2); Mean Corpuscular HGB Conc 32.4 GM/DL (32-36); Mean Corpuscular Volume 95.8 FL (87-102); Monocytes % 12.8 % (1.7-12.7); Neutrophils % 70.4 % (38.7-73.9); Platelet Count 123 T/CUMM (130-400); Red Blood Count 3.09 MC/CUMM (3.8-5.5); Red Cell Distribution Width 20.6 % (9.3-17.3); White Blood Count 9.1 T/CUMM (4-12)
[2021-03-23 06:18] LABS: Osmolality,Calculated 266.7 MOS/KG (273-304); Potassium 5.1 MMOL/L (3.5-5.1)
[2021-03-23 06:19] LABS: Hypochromasia 1+; Microcytosis 1+
[2021-03-23] MEDS: LISINOPRIL/HCTZ 10-12.5 MG TABLET PO SCH (08:59)
[2021-03-23] MEDS: CLOPIDOGREL 75 MG TABLET PO SCH (09:00)
[2021-03-23] MEDS: ATORVASTATIN 40 MG TABLET PO SCH (09:00)
[2021-03-23] MEDS: SERTRALINE 100 MG TABLET PO SCH (09:00)
[2021-03-23] MEDS: FOLIC ACID 1 MG TABLET PO SCH (09:00)
[2021-03-23] MEDS: MULTIVITAMIN (CENTRUM) TABLET PO SCH (09:00)
[2021-03-23] MEDS: ASPIRIN EC 81 MG TABLET PO SCH (09:00)
[2021-03-23] MEDS: carvediloL 12.5 MG TABLET PO SCH (09:00)
[2021-03-23] MEDS: cloNIDine 0.1 MG TABLET PO SCH (09:00)
[2021-03-23] MEDS: FERROUS SULFATE 325 MG TABLET PO SCH ×3 (09:00→17:01)
[2021-03-23] MEDS: MENTHOL/ZINC OXIDE OINT 71 GM JAR TOP SCH ×2 (09:01→20:58)
[2021-03-23] MEDS: VELPHORO 500 MG PO SCH ×3 (09:18→17:09)
[2021-03-23] MEDS: LACTULOSE 20 GM/30 ML UDCUP PO SCH ×2 (09:18→20:58)
[2021-03-23] MEDS ORDERED: GENTAMICIN INJ 80 MG in PREMIX 1 EACH IV ONE (17:00)
[2021-03-23] MEDS: diphenhydrAMINE CAP 25 MG CAPSULE PO PRN (20:58)
[2021-03-24] MEDS: ALBUTEROL/IPRATROPIUM 3 ML NEB RESP TX SCH ×4 (00:20→20:01)
[2021-03-24] MEDS: AMPICILLIN INJ 2,000 MG in SODIUM CHLORIDE 0.9% 100 ML IV SCH ×6 (02:00→22:22)
[2021-03-24 07:07] LABS: Basophils % 0.4 % (0.0-0.8); Eosinophils # 0.1 10*3/uL (0.0-0.87); Eosinophils % 0.6 % (0.00-10.9); Hematocrit 29.7 VOL% (35.7-47.0); Hemoglobin 9.2 GM/DL (12.0-16.0); Immature Granulocytes % 0.4 %; Immature Granulocytes Absolute 0.04 #; Lymphocytes # 1.2 10*3/uL (1.4-4.0); Lymphocytes % 12.5 % (21.3-54.2); Mean Corpuscular Volume 97.7 FL (87-102); Monocytes % 11.4 % (1.7-12.7); Neutrophils % 74.7 % (38.7-73.9); Platelet Count 131 T/CUMM (130-400); Red Blood Count 3.04 MC/CUMM (3.8-5.5); Red Cell Distribution Width 20.5 % (9.3-17.3); White Blood Count 9.6 T/CUMM (4-12)
[2021-03-24 07:23] LABS: Platelet Estimate Adequate
[2021-03-24 07:24] LABS: Anisocytosis 3+; Atypical Lymphocytes 1+; Burr Cells Few; Poikilocytosis 1+
[2021-03-24 07:37] LABS: Calcium 8.8 MG/DL (8.5-10.1); Osmolality,Calculated 261.9 MOS/KG (273-304); Potassium 5.1 MMOL/L (3.5-5.1)
[2021-03-24] MEDS: FERROUS SULFATE 325 MG TABLET PO SCH ×3 (09:13→17:27)
[2021-03-24] MEDS: VELPHORO 500 MG PO SCH ×3 (09:14→17:35)
[2021-03-24] MEDS: ASPIRIN EC 81 MG TABLET PO SCH (09:14)
[2021-03-24] MEDS: MENTHOL/ZINC OXIDE OINT 71 GM JAR TOP SCH ×2 (09:14→22:23)
[2021-03-24] MEDS: MULTIVITAMIN (CENTRUM) TABLET PO SCH (09:14)
[2021-03-24] MEDS: cloNIDine 0.1 MG TABLET PO SCH (09:14)
[2021-03-24] MEDS: CLOPIDOGREL 75 MG TABLET PO SCH (09:15)
[2021-03-24] MEDS: FOLIC ACID 1 MG TABLET PO SCH (09:15)
[2021-03-24] MEDS: LISINOPRIL/HCTZ 10-12.5 MG TABLET PO SCH (09:15)
[2021-03-24] MEDS: LACTULOSE 20 GM/30 ML UDCUP PO SCH ×2 (09:15→22:22)
[2021-03-24] MEDS: carvediloL 12.5 MG TABLET PO SCH (09:15)
[2021-03-24] MEDS: ATORVASTATIN 40 MG TABLET PO SCH (09:15)
[2021-03-24] MEDS: SERTRALINE 100 MG TABLET PO SCH (09:16)
[2021-03-24] MEDS: ACETAMINOPHEN 325 MG TABLET PO PRN ×2 (09:21→19:45)
[2021-03-24] MEDS: diphenhydrAMINE CAP 25 MG CAPSULE PO PRN (22:21)
[2021-03-25] MEDS: ACETAMINOPHEN 325 MG TABLET PO PRN (00:59)
[2021-03-25] MEDS: AMPICILLIN INJ 2,000 MG in SODIUM CHLORIDE 0.9% 100 ML IV SCH ×4 (02:14→13:47)
[2021-03-25] MEDS: ALBUTEROL/IPRATROPIUM 3 ML NEB RESP TX SCH ×2 (02:38→07:57)
[2021-03-25 06:14] LABS: Basophils % 0.3 % (0.0-0.8); Eosinophils # 0.1 10*3/uL (0.0-0.87); Eosinophils % 1.1 % (0.00-10.9); Hematocrit 27.8 VOL% (35.7-47.0); Hemoglobin 8.9 GM/DL (12.0-16.0); Immature Granulocytes % 0.5 %; Immature Granulocytes Absolute 0.05 #; Lymphocytes # 1.4 10*3/uL (1.4-4.0); Lymphocytes % 13.4 % (21.3-54.2); Mean Corpuscular Volume 96.2 FL (87-102); Monocytes % 13.1 % (1.7-12.7); NRBC # 0.02 10*3/uL; Neutrophils % 71.6 % (38.7-73.9); Platelet Count 137 T/CUMM (130-400); Red Blood Count 2.89 MC/CUMM (3.8-5.5); Red Cell Distribution Width 19.9 % (9.3-17.3); White Blood Count 10.1 T/CUMM (4-12)
[2021-03-25 06:52] LABS: Calcium 8.8 MG/DL (8.5-10.1); Osmolality,Calculated 263.9 MOS/KG (273-304); Potassium 5.1 MMOL/L (3.5-5.1)
[2021-03-25 08:21] VITALS: BP 106/70
[2021-03-25] MEDS: VELPHORO 500 MG PO SCH ×2 (09:47→11:24)
[2021-03-25] MEDS: LACTULOSE 20 GM/30 ML UDCUP PO SCH (13:40)
[2021-03-25] MEDS: MULTIVITAMIN (CENTRUM) TABLET PO SCH (13:40)
[2021-03-25] MEDS: carvediloL 12.5 MG TABLET PO SCH (13:40)
[2021-03-25] MEDS: ASPIRIN EC 81 MG TABLET PO SCH (13:41)
[2021-03-25] MEDS: cloNIDine 0.1 MG TABLET PO SCH (13:41)
[2021-03-25] MEDS: ATORVASTATIN 40 MG TABLET PO SCH (13:41)
[2021-03-25] MEDS: FERROUS SULFATE 325 MG TABLET PO SCH ×2 (13:41→13:42)
[2021-03-25] MEDS: FOLIC ACID 1 MG TABLET PO SCH (13:41)
[2021-03-25] MEDS: SERTRALINE 100 MG TABLET PO SCH (13:41)
[2021-03-25] MEDS: CLOPIDOGREL 75 MG TABLET PO SCH (13:41)
[2021-03-25] MEDS: MENTHOL/ZINC OXIDE OINT 71 GM JAR TOP SCH (13:42)
[2021-03-25] MEDS: LISINOPRIL/HCTZ 10-12.5 MG TABLET PO SCH (13:42)
== END 2021-03-25 14:26 | DRG 314 ==
LOC: EDBD → EDUNIT# → N.ED 17:21 → N.EDINP 20:51 → SUATTDRO 20:51 → N.TELEN 20:57
PROVIDERS: ADMIT Internal Medicine; ATTEND Internal Medicine Geriatric Medicine

== ENCOUNTER 2021-05-05 11:03 | Observation (INO) ==
[2021-05-05] MEDS ORDERED: MORPHINE 4 MG/1 ML VIAL IV STA (11:29)
[2021-05-05] MEDS ORDERED: NITROGLYCERIN SL 0.4 MG TABLET SL PRN ×2 (11:29→13:25)
[2021-05-05] MEDS ORDERED: ASPIRIN 325 MG TABLET PO STA (11:29)
[2021-05-05 12:10] LABS: Basophils % 0.3 % (0.0-0.8); Eosinophils % 0.7 % (0.00-10.9); Hematocrit 32.7 VOL% (35.7-47.0); Hemoglobin 10.1 GM/DL (12.0-16.0); Immature Granulocytes % 0.5 %; Immature Granulocytes Absolute 0.03 #; Lymphocytes % 16.2 % (21.3-54.2); Mean Corpuscular HGB Conc 30.9 GM/DL (32-36); Mean Platelet Volume 11.4 FL (9.6-12.0); Monocytes % 13.7 % (1.7-12.7); Neutrophils % 68.6 % (38.7-73.9); Platelet Count 182 T/CUMM (130-400); Red Blood Count 3.27 MC/CUMM (3.8-5.5); Red Cell Distribution Width 18.6 % (9.3-17.3); White Blood Count 6.1 T/CUMM (4-12)
[2021-05-05 12:26] LABS: Calcium 9.4 MG/DL (8.5-10.1); Osmolality,Calculated 277.7 MOS/KG (273-304); Potassium 3.3 MMOL/L (3.5-5.1)
[2021-05-05] MEDS ORDERED: DEXTROSE 50% 25 GM/50 ML VIAL IV PRN (13:19)
[2021-05-05] MEDS ORDERED: GLUCAGON 1 MG VIAL IM PRN (13:19)
[2021-05-05] MEDS ORDERED: ONDANSETRON 4 MG/2 ML VIAL IV PRN (13:19)
[2021-05-05] MEDS ORDERED: HEPARIN 5,000 UNIT/1 ML VIAL SUBCUT SCH (13:30)
[2021-05-05] MEDS: cefTRIAXone 2,000 MG in SODIUM CHLORIDE 0.9% 100 ML IV SCH (18:23)
[2021-05-05] MEDS: APIXABAN 2.5 MG TABLET PO SCH (21:23)
[2021-05-05] MEDS: carvediloL 6.25 MG TABLET PO SCH (21:23)
[2021-05-05] MEDS: PANTOPRAZOLE 40 MG TABLET PO SCH (21:23)
[2021-05-06 05:09] LABS: Basophils % 0.3 % (0.0-0.8); Eosinophils % 0.6 % (0.00-10.9); Hematocrit 31.6 VOL% (35.7-47.0); Hemoglobin 9.6 GM/DL (12.0-16.0); Immature Granulocytes % 0.5 %; Immature Granulocytes Absolute 0.03 #; Lymphocytes % 15.6 % (21.3-54.2); Mean Corpuscular HGB Conc 30.4 GM/DL (32-36); Mean Corpuscular Volume 99.7 FL (87-102); Mean Platelet Volume 12.2 FL (9.6-12.0); Monocytes % 13.9 % (1.7-12.7); Neutrophils % 69.1 % (38.7-73.9); Platelet Count 176 T/CUMM (130-400); Red Blood Count 3.17 MC/CUMM (3.8-5.5); Red Cell Distribution Width 18.8 % (9.3-17.3); White Blood Count 6.3 T/CUMM (4-12)
[2021-05-06] MEDS: LEVOTHYROXINE 25 MCG TABLET PO SCH (05:24)
[2021-05-06 05:25] LABS: Calcium 9.5 MG/DL (8.5-10.1); Osmolality,Calculated 275.8 MOS/KG (273-304); Potassium 3.5 MMOL/L (3.5-5.1)
[2021-05-06] MEDS: ACETAMINOPHEN 325 MG TABLET PO PRN ×3 (05:25→17:58)
[2021-05-06] MEDS: CLOPIDOGREL 75 MG TABLET PO SCH (09:38)
[2021-05-06] MEDS: FUROSEMIDE 40 MG TABLET PO SCH (09:38)
[2021-05-06] MEDS: carvediloL 6.25 MG TABLET PO SCH ×2 (09:38→23:57)
[2021-05-06] MEDS: AZITHROMYCIN 250 MG TABLET PO SCH (09:38)
[2021-05-06] MEDS: APIXABAN 2.5 MG TABLET PO SCH ×2 (09:39→20:28)
[2021-05-06] MEDS: SERTRALINE 50 MG TABLET PO SCH (09:39)
[2021-05-06] MEDS: cefTRIAXone 2,000 MG in SODIUM CHLORIDE 0.9% 100 ML IV SCH (16:54)
[2021-05-06] MEDS: PANTOPRAZOLE 40 MG TABLET PO SCH (20:28)
[2021-05-06] MEDS ORDERED: ZALEPLON 5 MG CAPSULE PO ONE (22:14)
[2021-05-07 05:46] LABS: Basophils % 0.5 % (0.0-0.8); Eosinophils % 0.2 % (0.00-10.9); Hematocrit 34.2 VOL% (35.7-47.0); Hemoglobin 10.4 GM/DL (12.0-16.0); Immature Granulocytes % 0.3 %; Immature Granulocytes Absolute 0.02 #; Lymphocytes % 16.4 % (21.3-54.2); Mean Corpuscular HGB Conc 30.4 GM/DL (32-36); Mean Corpuscular Volume 98.6 FL (87-102); Mean Platelet Volume 12.1 FL (9.6-12.0); Monocytes % 13.4 % (1.7-12.7); NRBC # 0.03 10*3/uL; Neutrophils % 69.2 % (38.7-73.9); Platelet Count 175 T/CUMM (130-400); Red Blood Count 3.47 MC/CUMM (3.8-5.5); Red Cell Distribution Width 19.2 % (9.3-17.3)
[2021-05-07 06:27] LABS: Calcium 9.6 MG/DL (8.5-10.1); Osmolality,Calculated 272.1 MOS/KG (273-304); Potassium 3.7 MMOL/L (3.5-5.1)
[2021-05-07] MEDS: LEVOTHYROXINE 25 MCG TABLET PO SCH (07:04)
[2021-05-07] MEDS: AZITHROMYCIN 250 MG TABLET PO SCH (10:54)
[2021-05-07] MEDS: APIXABAN 2.5 MG TABLET PO SCH (10:54)
[2021-05-07] MEDS: CLOPIDOGREL 75 MG TABLET PO SCH (10:54)
[2021-05-07] MEDS: FUROSEMIDE 40 MG TABLET PO SCH (10:55)
[2021-05-07] MEDS: SERTRALINE 50 MG TABLET PO SCH (10:55)
[2021-05-07] MEDS: carvediloL 6.25 MG TABLET PO SCH (10:55)
[2021-05-07] MEDS: cefTRIAXone 2,000 MG in SODIUM CHLORIDE 0.9% 100 ML IV SCH (14:37)
[2021-05-08] MEDS: PANTOPRAZOLE 40 MG TABLET PO SCH (00:22)
[2021-05-08] MEDS: carvediloL 6.25 MG TABLET PO SCH ×2 (00:22→09:34)
[2021-05-08] MEDS: APIXABAN 2.5 MG TABLET PO SCH ×2 (00:22→09:33)
[2021-05-08 05:44] LABS: Basophils % 0.5 % (0.0-0.8); Eosinophils % 0.3 % (0.00-10.9); Hematocrit 34.6 VOL% (35.7-47.0); Hemoglobin 10.8 GM/DL (12.0-16.0); Immature Granulocytes % 0.5 %; Immature Granulocytes Absolute 0.03 #; Lymphocytes # 1.2 10*3/uL (1.4-4.0); Lymphocytes % 19.7 % (21.3-54.2); Mean Corpuscular HGB Conc 31.2 GM/DL (32-36); Mean Corpuscular Volume 99.4 FL (87-102); Mean Platelet Volume 12.5 FL (9.6-12.0); Monocytes % 16.4 % (1.7-12.7); NRBC # 0.05 10*3/uL; Neutrophils % 62.6 % (38.7-73.9); Platelet Count 174 T/CUMM (130-400); Red Blood Count 3.48 MC/CUMM (3.8-5.5); White Blood Count 6.1 T/CUMM (4-12)
[2021-05-08 05:56] LABS: Calcium 9.4 MG/DL (8.5-10.1); Osmolality,Calculated 276.8 MOS/KG (273-304); Potassium 4.3 MMOL/L (3.5-5.1)
[2021-05-08] MEDS ORDERED: LEVOTHYROXINE 50 MCG TABLET PO SCH (06:00)
[2021-05-08 06:15] LABS: Hypochromasia 1+; Lymphocytes 14 % (20-55); Ovalocytes Slight; Platelet Estimate Adequate; Segmented Neutrophils 73 % (50-85); Total Cells Counted 100
[2021-05-08] MEDS: SERTRALINE 50 MG TABLET PO SCH (09:32)
[2021-05-08] MEDS: ACETAMINOPHEN 325 MG TABLET PO PRN (09:33)
[2021-05-08] MEDS: CLOPIDOGREL 75 MG TABLET PO SCH (09:34)
[2021-05-08] MEDS: AZITHROMYCIN 250 MG TABLET PO SCH (09:34)
[2021-05-08] MEDS: FUROSEMIDE 40 MG TABLET PO SCH (09:34)
[2021-05-08 14:02] LABS: Hepatitis B Core IgM Quant 0.09 Index; Hepatitis B Surface Ag Quant < 0.10 Index; Hepatitis B Surface Ag Result Non-Reactive (NonReactive); Hepatitis C Virus Ab Quant 0.12 Index; Hepatitis C Virus Ab Result Non-Reactive (NonReactive)
[2021-05-08 16:01] VITALS: BP 160/57
[2021-05-08] MEDS: cefTRIAXone 2,000 MG in SODIUM CHLORIDE 0.9% 100 ML IV SCH (16:40)
== END 2021-05-08 18:54 ==
LOC: EDUNIT# → EDBD → N.EDINP 11:03 → N.ED 11:03 → SUATTDRO 13:17 → N.TELES 14:16
PROVIDERS: ADMIT Hospitalist; ATTEND Internal Medicine

== ENCOUNTER 2021-05-13 14:49 | Observation (INO) ==
[2021-05-13] MEDS ORDERED: ASPIRIN 325 MG TABLET PO STA (15:13)
[2021-05-13] MEDS ORDERED: NITROGLYCERIN SL 0.4 MG TABLET SL PRN (15:13)
[2021-05-13 15:49] LABS: Basophils % 0.3 % (0.0-0.8); Eosinophils # 0.1 10*3/uL (0.0-0.87); Eosinophils % 0.8 % (0.00-10.9); Hematocrit 32.3 VOL% (35.7-47.0); Immature Granulocytes % 0.6 %; Immature Granulocytes Absolute 0.04 #; Lymphocytes # 0.7 10*3/uL (1.4-4.0); Lymphocytes % 11.3 % (21.3-54.2); Mean Corpuscular Volume 100.3 FL (87-102); Mean Platelet Volume 12.8 FL (9.6-12.0); Monocytes % 12.4 % (1.7-12.7); Neutrophils % 74.6 % (38.7-73.9); Platelet Count 125 T/CUMM (130-400); Red Blood Count 3.22 MC/CUMM (3.8-5.5); Red Cell Distribution Width 19.5 % (9.3-17.3); White Blood Count 6.5 T/CUMM (4-12)
[2021-05-13 16:00] LABS: INR 1.5; PT Patient Result 16.4 SECS (10.5-12.0); Partial Thromboplastin Time 34.8 SECS (23.9-33.8)
[2021-05-13 16:13] LABS: Calcium 9.1 MG/DL (8.5-10.1); Osmolality,Calculated 272.1 MOS/KG (273-304); Potassium 4.2 MMOL/L (3.5-5.1)
[2021-05-13] MEDS ORDERED: ONDANSETRON 4 MG/2 ML VIAL IV PRN (17:02)
[2021-05-13] MEDS ORDERED: GLUCAGON 1 MG VIAL IM PRN (17:02)
[2021-05-13] MEDS ORDERED: hydrALAZINE 20 MG/1 ML VIAL IV PRN (17:02)
[2021-05-13] MEDS ORDERED: ACETAMINOPHEN 325 MG TABLET PO PRN (17:02)
[2021-05-13] MEDS ORDERED: DEXTROSE 50% 25 GM/50 ML VIAL IV PRN (17:02)
[2021-05-13 17:41] LABS: Risk Ratio 1.89; Thyroid Stimulating Hormone 9.73 uIU/ml (0.358-3.74); VLDL CHOLESTEROL 15.4 MG/DL
[2021-05-13] MEDS: FERROUS SULFATE 325 MG TABLET PO SCH (18:56)
[2021-05-13] MEDS: INSULIN LISPRO 100 UNIT/ML SUBCUT SCH (20:14)
[2021-05-13] MEDS: oxyCODONE/ACETAMINOPHEN 5-325 MG TABLET PO PRN (20:44)
[2021-05-13] MEDS: carvediloL 6.25 MG TABLET PO SCH (20:46)
[2021-05-13] MEDS: APIXABAN 2.5 MG TABLET PO SCH (20:47)
[2021-05-13] MEDS ORDERED: PANTOPRAZOLE 40 MG TABLET PO SCH (21:00)
[2021-05-13] MEDS ORDERED: ATORVASTATIN 40 MG TABLET PO SCH (21:00)
[2021-05-14 04:56] LABS: Basophils % 0.5 % (0.0-0.8); Eosinophils % 0.7 % (0.00-10.9); Hematocrit 34.8 VOL% (35.7-47.0); Hemoglobin 10.5 GM/DL (12.0-16.0); Immature Granulocytes % 0.5 %; Immature Granulocytes Absolute 0.03 #; Lymphocytes # 1.1 10*3/uL (1.4-4.0); Lymphocytes % 18.5 % (21.3-54.2); Mean Corpuscular HGB Conc 30.2 GM/DL (32-36); Mean Corpuscular Volume 101.8 FL (87-102); Mean Platelet Volume 12.6 FL (9.6-12.0); Monocytes % 15.6 % (1.7-12.7); Neutrophils % 64.2 % (38.7-73.9); Platelet Count 105 T/CUMM (130-400); Red Blood Count 3.42 MC/CUMM (3.8-5.5); Red Cell Distribution Width 19.5 % (9.3-17.3); White Blood Count 5.7 T/CUMM (4-12)
[2021-05-14 05:06] LABS: Calcium 9.3 MG/DL (8.5-10.1); Osmolality,Calculated 277.7 MOS/KG (273-304); Potassium 3.6 MMOL/L (3.5-5.1)
[2021-05-14 05:55] LABS: Lymphocytes 12 % (20-55); Nucleated Red Blood Cells 1 (0-5); Segmented Neutrophils 76 % (50-85); Total Cells Counted 100
[2021-05-14 05:58] LABS: Platelet Estimate Normal
[2021-05-14 05:59] LABS: Anisocytosis 1+; Macrocytosis 1+; Target Cells Few
[2021-05-14 06:00] LABS: Hypochromasia Slight; Polychromasia Slight
[2021-05-14] MEDS ORDERED: LEVOTHYROXINE 50 MCG TABLET PO SCH (06:00)
[2021-05-14] MEDS ORDERED: ASCORBIC ACID 500 MG TABLET PO SCH (09:00)
[2021-05-14] MEDS ORDERED: SERTRALINE 50 MG TABLET PO SCH (09:00)
[2021-05-14] MEDS ORDERED: FUROSEMIDE 40 MG TABLET PO SCH (09:00)
[2021-05-14] MEDS ORDERED: CLOPIDOGREL 75 MG TABLET PO SCH (09:00)
[2021-05-14] MEDS ORDERED: LISINOPRIL/HCTZ 10-12.5 MG TABLET PO SCH (09:00)
[2021-05-14] MEDS ORDERED: ASPIRIN CHEW 81 MG TABLET PO SCH (09:00)
[2021-05-14] MEDS: FERROUS SULFATE 325 MG TABLET PO SCH ×2 (10:14→12:46)
[2021-05-14] MEDS: APIXABAN 2.5 MG TABLET PO SCH (10:14)
[2021-05-14] MEDS: carvediloL 6.25 MG TABLET PO SCH (10:15)
[2021-05-14] MEDS: INSULIN LISPRO 100 UNIT/ML SUBCUT SCH ×2 (10:55→12:19)
[2021-05-14 12:35] VITALS: BP 117/58
[2021-05-14] MEDS: oxyCODONE/ACETAMINOPHEN 5-325 MG TABLET PO PRN (14:20)
== END 2021-05-14 14:44 ==
LOC: EDUNIT# → EDBD → N.ED 14:49 → N.EDINP 14:49 → N.TELEN 18:21
PROVIDERS: ADMIT Internal Medicine; ATTEND Internal Medicine

== ENCOUNTER 2021-09-03 19:33 | Observation (INO) ==
[2021-09-03 21:09] LABS: Basophils % 0.4 % (0.0-0.8); Eosinophils # 0.1 10*3/uL (0.0-0.87); Eosinophils % 1.1 % (0.00-10.9); Hematocrit 25.6 VOL% (35.7-47.0); Hemoglobin 7.7 GM/DL (12.0-16.0); Immature Granulocytes % 0.4 %; Immature Granulocytes Absolute 0.02 #; Lymphocytes # 0.9 10*3/uL (1.4-4.0); Lymphocytes % 15.5 % (21.3-54.2); Mean Corpuscular HGB Conc 30.1 GM/DL (32-36); Mean Corpuscular Volume 97.7 FL (87-102); Monocytes % 14.1 % (1.7-12.7); Neutrophils % 68.5 % (38.7-73.9); Platelet Count 171 T/CUMM (130-400); Red Blood Count 2.62 MC/CUMM (3.8-5.5); Red Cell Distribution Width 19.6 % (9.3-17.3); White Blood Count 5.7 T/CUMM (4-12)
[2021-09-03 21:22] LABS: INR 1.2
[2021-09-03 21:43] LABS: Albumin 2.3 G/DL (3.4-5.0); Bilirubin,Total 0.6 MG/DL (0.20-1.00); Calcium 9.5 MG/DL (8.5-10.1); Osmolality,Calculated 285.4 MOS/KG (273-304); Potassium 3.5 MMOL/L (3.5-5.1); Total Protein 7.1 G/DL (6.4-8.2)
[2021-09-03 22:40] LABS: Band Neutrophils 3 % (0-10); Eosinophils 2 % (0-10); Lymphocytes 18 % (20-55); Platelet Estimate Normal; Segmented Neutrophils 67 % (50-85); Total Cells Counted 100
[2021-09-04] MEDS ORDERED: FUROSEMIDE 100 MG/10 ML VIAL IV STA (00:14)
[2021-09-04] MEDS ORDERED: FUROSEMIDE 40 MG/4 ML VIAL ONE (00:41)
[2021-09-04 01:40] LABS: Bacteria,Urine Occasional /HPF (Few); Bilirubin,Urine Negative (Negative); Blood, Urine Negative (Negative); Glucose,Urine (UA) Negative (Negative); Ketones,Urine Negative (Negative); Mucus,Urine Occasional /LPF (Occasional); Nitrite,Urine Negative (Negative); Protein,Urine 100 MG/DL; RBC,Urine 1 /HPF (0-4); Squamous Epithelial Cell,Urine Occasional /HPF (0-10); Urine Appearance CLEAR (Clear); Urine Color Yellow (Yellow); Urine Specific Gravity 1.009 (1.001-1.035); Urine Urobilinogen < 2.0 EU/DL (0.2-1.0)
[2021-09-04] MEDS ORDERED: GLUCAGON 1 MG VIAL IM PRN (03:20)
[2021-09-04] MEDS ORDERED: DEXTROSE 50% 25 GM/50 ML VIAL IV PRN (03:20)
[2021-09-04] MEDS: APIXABAN 2.5 MG TABLET PO SCH ×2 (10:10→21:23)
[2021-09-04] MEDS: PANTOPRAZOLE 20 MG TABLET PO SCH (10:10)
[2021-09-04] MEDS: ASCORBIC ACID 500 MG TABLET PO SCH (10:10)
[2021-09-04] MEDS: FERROUS SULFATE 325 MG TABLET PO SCH ×3 (10:10→21:23)
[2021-09-04] MEDS: carvediloL 6.25 MG TABLET PO SCH ×2 (10:10→21:23)
[2021-09-04] MEDS: INSULIN LISPRO 100 UNIT/ML SUBCUT SCH ×4 (10:11→22:17)
[2021-09-04] MEDS: SUCRALFATE 1 GM/10 ML UDCUP PO SCH ×2 (10:11→16:57)
[2021-09-04] MEDS: LISINOPRIL/HCTZ 10-12.5 MG TABLET PO SCH (10:21)
[2021-09-05] MEDS: oxyCODONE/ACETAMINOPHEN 5-325 MG TABLET PO PRN ×2 (04:36→13:57)
[2021-09-05 05:24] LABS: Basophils % 0.4 % (0.0-0.8); Eosinophils % 0.3 % (0.00-10.9); Hematocrit 26.9 VOL% (35.7-47.0); Hemoglobin 8.4 GM/DL (12.0-16.0); Lymphocytes # 0.8 10*3/uL (1.4-4.0); Lymphocytes % 11.5 % (21.3-54.2); Mean Corpuscular HGB Conc 31.2 GM/DL (32-36); Mean Corpuscular Volume 95.4 FL (87-102); Mean Platelet Volume 12.1 FL (9.6-12.0); Monocytes % 10.2 % (1.7-12.7); Neutrophils % 77.2 % (38.7-73.9); Platelet Count 186 T/CUMM (130-400); Red Blood Count 2.82 MC/CUMM (3.8-5.5); Red Cell Distribution Width 19.4 % (9.3-17.3); White Blood Count 7.2 T/CUMM (4-12)
[2021-09-05 05:59] LABS: Calcium 9.7 MG/DL (8.5-10.1); Osmolality,Calculated 282.8 MOS/KG (273-304); Potassium 3.3 MMOL/L (3.5-5.1)
[2021-09-05] MEDS: ASCORBIC ACID 500 MG TABLET PO SCH (08:54)
[2021-09-05] MEDS: FERROUS SULFATE 325 MG TABLET PO SCH ×3 (08:54→20:59)
[2021-09-05] MEDS: SUCRALFATE 1 GM/10 ML UDCUP PO SCH ×2 (08:54→16:31)
[2021-09-05] MEDS: carvediloL 6.25 MG TABLET PO SCH ×2 (08:54→20:59)
[2021-09-05] MEDS: APIXABAN 2.5 MG TABLET PO SCH (08:54)
[2021-09-05] MEDS: PANTOPRAZOLE 20 MG TABLET PO SCH (08:54)
[2021-09-05] MEDS: INSULIN LISPRO 100 UNIT/ML SUBCUT SCH ×4 (08:55→20:06)
[2021-09-05] MEDS: LISINOPRIL/HCTZ 10-12.5 MG TABLET PO SCH (13:56)
[2021-09-05] MEDS: POTASSIUM CHLORIDE 20 MEQ TABLET PO PRN ×3 (13:56→16:31)
[2021-09-05] MEDS: PHENYLEPH/MINERAL OIL/PETROLAT 57 GM TUBE TOP PRN (16:31)
[2021-09-06] MEDS: oxyCODONE/ACETAMINOPHEN 5-325 MG TABLET PO PRN ×2 (04:54→21:39)
[2021-09-06 05:20] LABS: Basophils % 0.4 % (0.0-0.8); Eosinophils # 0.1 10*3/uL (0.0-0.87); Eosinophils % 1.1 % (0.00-10.9); Hematocrit 25.7 VOL% (35.7-47.0); Hemoglobin 7.7 GM/DL (12.0-16.0); Immature Granulocytes % 0.4 %; Immature Granulocytes Absolute 0.02 #; Lymphocytes # 0.9 10*3/uL (1.4-4.0); Lymphocytes % 17.4 % (21.3-54.2); Mean Corpuscular Volume 96.6 FL (87-102); Mean Platelet Volume 11.2 FL (9.6-12.0); Monocytes % 13.3 % (1.7-12.7); Neutrophils % 67.4 % (38.7-73.9); Platelet Count 171 T/CUMM (130-400); Red Blood Count 2.66 MC/CUMM (3.8-5.5); Red Cell Distribution Width 19.6 % (9.3-17.3); White Blood Count 5.4 T/CUMM (4-12)
[2021-09-06 05:24] LABS: Basophils % 0.4 % (0.0-0.8); Eosinophils # 0.1 10*3/uL (0.0-0.87); Eosinophils % 1.1 % (0.00-10.9); Hematocrit 25.5 VOL% (35.7-47.0); Hemoglobin 7.7 GM/DL (12.0-16.0); Lymphocytes # 0.9 10*3/uL (1.4-4.0); Lymphocytes % 16.1 % (21.3-54.2); Mean Corpuscular HGB Conc 30.2 GM/DL (32-36); Mean Corpuscular Volume 96.6 FL (87-102); Mean Platelet Volume 11.6 FL (9.6-12.0); Monocytes % 14.3 % (1.7-12.7); Neutrophils % 67.9 % (38.7-73.9); Platelet Count 153 T/CUMM (130-400); Red Blood Count 2.64 MC/CUMM (3.8-5.5); Red Cell Distribution Width 19.5 % (9.3-17.3); White Blood Count 5.4 T/CUMM (4-12)
[2021-09-06 05:36] LABS: Calcium 9.2 MG/DL (8.5-10.1); Osmolality,Calculated 280.7 MOS/KG (273-304)
[2021-09-06 05:48] LABS: Eosinophils 1 % (0-10); Lymphocytes 20 % (20-55); Segmented Neutrophils 64 % (50-85)
[2021-09-06 05:49] LABS: Hypochromasia 1+; Microcytosis 1+; Ovalocytes Slight; Target Cells Slight
[2021-09-06 05:50] LABS: Platelet Estimate Adequate
[2021-09-06] MEDS: INSULIN LISPRO 100 UNIT/ML SUBCUT SCH ×4 (09:17→21:44)
[2021-09-06] MEDS: ASPIRIN EC 81 MG TABLET PO SCH (09:56)
[2021-09-06] MEDS: SUCRALFATE 1 GM/10 ML UDCUP PO SCH ×2 (09:56→16:20)
[2021-09-06] MEDS: FERROUS SULFATE 325 MG TABLET PO SCH ×3 (09:56→21:39)
[2021-09-06] MEDS: PANTOPRAZOLE 20 MG TABLET PO SCH (09:56)
[2021-09-06] MEDS: carvediloL 6.25 MG TABLET PO SCH ×2 (09:56→21:39)
[2021-09-06] MEDS: ASCORBIC ACID 500 MG TABLET PO SCH (09:56)
[2021-09-06] MEDS: LISINOPRIL/HCTZ 10-12.5 MG TABLET PO SCH (09:56)
[2021-09-06] MEDS: COLLAGENASE OINT 30 GM TUBE TOP SCH (12:45)
[2021-09-06] MEDS: DESITIN 4OZ/NYSTATIN 15 GRAM MIXTURE PASTE TOP SCH ×2 (12:45→21:43)
[2021-09-06] MEDS: PHENYLEPH/MINERAL OIL/PETROLAT 57 GM TUBE TOP PRN (21:43)
[2021-09-07] MEDS: oxyCODONE/ACETAMINOPHEN 5-325 MG TABLET PO PRN ×2 (02:01→21:21)
[2021-09-07 05:07] LABS: Basophils % 0.3 % (0.0-0.8); Eosinophils # 0.1 10*3/uL (0.0-0.87); Eosinophils % 1.3 % (0.00-10.9); Hemoglobin 7.9 GM/DL (12.0-16.0); Lymphocytes % 15.6 % (21.3-54.2); Mean Corpuscular HGB Conc 30.4 GM/DL (32-36); Mean Platelet Volume 11.5 FL (9.6-12.0); Monocytes % 14.3 % (1.7-12.7); Neutrophils % 68.2 % (38.7-73.9); Platelet Count 165 T/CUMM (130-400); Red Blood Count 2.68 MC/CUMM (3.8-5.5); Red Cell Distribution Width 19.9 % (9.3-17.3); White Blood Count 6.1 T/CUMM (4-12)
[2021-09-07 05:26] LABS: Calcium 9.1 MG/DL (8.5-10.1); Osmolality,Calculated 279.1 MOS/KG (273-304); Potassium 3.8 MMOL/L (3.5-5.1)
[2021-09-07 05:31] LABS: INR 1.1; PT Patient Result 12.4 SECS (10.5-12.0); Partial Thromboplastin Time 32.1 SECS (23.9-33.8)
[2021-09-07] MEDS: SUCRALFATE 1 GM/10 ML UDCUP PO SCH ×2 (07:50→15:41)
[2021-09-07] MEDS: INSULIN LISPRO 100 UNIT/ML SUBCUT SCH ×4 (07:51→21:22)
[2021-09-07] MEDS: PANTOPRAZOLE 20 MG TABLET PO SCH (12:28)
[2021-09-07] MEDS: LISINOPRIL/HCTZ 20-25 MG TABLET PO SCH (12:28)
[2021-09-07] MEDS: ASPIRIN EC 81 MG TABLET PO SCH (12:29)
[2021-09-07] MEDS: FERROUS SULFATE 325 MG TABLET PO SCH ×3 (12:29→21:22)
[2021-09-07] MEDS: ASCORBIC ACID 500 MG TABLET PO SCH (12:29)
[2021-09-07] MEDS: carvediloL 6.25 MG TABLET PO SCH ×2 (12:29→21:22)
[2021-09-07] MEDS: COLLAGENASE OINT 30 GM TUBE TOP SCH (12:30)
[2021-09-07] MEDS: DESITIN 4OZ/NYSTATIN 15 GRAM MIXTURE PASTE TOP SCH ×2 (12:30→21:23)
[2021-09-07] MEDS ORDERED: TUBERCULIN SKIN TEST 0.1 ML SYRINGE INTRADERM ONE (15:00)
[2021-09-07] MEDS: PHENYLEPH/MINERAL OIL/PETROLAT 57 GM TUBE TOP PRN (21:23)
[2021-09-08] MEDS: oxyCODONE/ACETAMINOPHEN 5-325 MG TABLET PO PRN (02:30)
[2021-09-08] MEDS: SUCRALFATE 1 GM/10 ML UDCUP PO SCH (09:51)
[2021-09-08] MEDS: INSULIN LISPRO 100 UNIT/ML SUBCUT SCH ×2 (09:51→13:01)
[2021-09-08] MEDS: FERROUS SULFATE 325 MG TABLET PO SCH (10:11)
[2021-09-08] MEDS: PANTOPRAZOLE 20 MG TABLET PO SCH (10:11)
[2021-09-08] MEDS: COLLAGENASE OINT 30 GM TUBE TOP SCH (10:11)
[2021-09-08] MEDS: ASCORBIC ACID 500 MG TABLET PO SCH (10:11)
[2021-09-08] MEDS: LISINOPRIL/HCTZ 20-25 MG TABLET PO SCH (10:11)
[2021-09-08] MEDS: carvediloL 6.25 MG TABLET PO SCH (10:11)
[2021-09-08] MEDS: ASPIRIN EC 81 MG TABLET PO SCH (10:11)
[2021-09-08] MEDS: DESITIN 4OZ/NYSTATIN 15 GRAM MIXTURE PASTE TOP SCH (10:12)
[2021-09-08 14:11] VITALS: BP 147/79
== END 2021-09-08 15:00 ==
LOC: N.EDINP 19:33 → N.ED 19:33 → N.5E 09-04 04:39
PROVIDERS: ADMIT Emergency Medicine; ATTEND Emergency Medicine